=== PATIENT | female | born 1965 | race Caucasian/White ===

== ENCOUNTER 2019-07-12 07:30 | Inpatient (IN) | payer MEDICARE ==
[2019-07-30] MEDS ORDERED: Buffered Lidocaine 1% SYRIN* 1 ML/SYRINGE INTRADERM ONE (11:58)
[2019-07-31] MEDS ORDERED: Lactated Ringers 1000 ML Bag* 1,000 ML IV SCH ×2 (06:00→23:00)
[2019-07-31] MEDS ORDERED: ceFAZolin 2 GM in NS PREMIX(*) 2 GM/100 ML BAG IVPB ONE (06:53)
[2019-07-31] MEDS ORDERED: Bupivacaine 0.25% W/EPI* 10 ML SDV ONE ×2 (06:58→12:48)
[2019-07-31] MEDS ORDERED: Thrombin 5,000 UNITS* 1 APPLIC KIT - topical use - TOPICAL ONE (06:59)
[2019-07-31] MEDS ORDERED: Bacitracin INJECTION* 50,000 UNITS ONE ×6 (06:59→21:46)
[2019-07-31] MEDS ORDERED: Propofol* 500 MG/50 ML BTL ONE ×2 (07:21→12:20)
[2019-07-31] MEDS ORDERED: Remifentanil* 2 MG VIAL ONE ×5 (07:21→19:16)
[2019-07-31] MEDS ORDERED: Phenylephrine 40 MCG/ML SYRINGE ONE (07:21)
[2019-07-31] MEDS ORDERED: KETAMINE HCL* 50 MG/ML 10 ML VIAL ONE (07:22)
[2019-07-31] MEDS ORDERED: Midazolam* 1 MG/ML 2 ML VIAL (2 MG) ONE (07:23)
[2019-07-31] MEDS ORDERED: fentaNYL* 50 MCG/ML 2 ML VIAL (100 MCG VIAL) ONE ×2 (07:23→22:20)
[2019-07-31] MEDS ORDERED: Phenylephrine 10 MG/ML VIAL* 1 ML VIAL ONE ×2 (07:29→15:16)
[2019-07-31 11:07] LABS: Follicle Stimulating Hormone 57.1 mIU/mL; Luteinizing Hormone 48.9 mIU/mL
[2019-07-31] MEDS ORDERED: Rocuronium* 10 MG/ML VIAL ONE ×2 (11:16→13:43)
[2019-07-31] MEDS ORDERED: Propofol* 10 MG/ML 20 ML BTL ONE ×2 (11:16→20:46)
[2019-07-31] MEDS ORDERED: Dexamethasone IV* 4 MG/ML 1 ML (4 MG) ONE (12:31)
[2019-07-31] MEDS ORDERED: Propofol* 300 ML ONE (12:48)
[2019-07-31] MEDS ORDERED: DiMENhydriNATE IV* 50 MG/ML VIAL IV PUSH PRN (13:06)
[2019-07-31] MEDS ORDERED: oxyCODONE TAB* 5 MG TAB PO PRN (13:06)
[2019-07-31] MEDS ORDERED: Naloxone* 0.4 MG/ML 1 ML VIAL IV PRN (13:06)
--- NOTE | 2019-07-31 13:22 | CONSULT ---
Consult Consult: This is a 54 yo pt prestening for a multi-level transforaminal back surgery. She had an elevated blood beta HCG (9.33) on 07/25/19. It is noted by the lab that an elevated HCG that is still < 20 is normal for perimenopausal women. We spoke with Ob-Vessel Crew Member Aidan Aguilar over the phone who suggested that we repeat the HCG, and take an LH and FSH. Her repeat HCG was 10.12, and her LH and FSH levels were all suggestive that she was not and that the elevated HCG was 2/[address] Aguilar and pathologist Dr. Moreland agreed. The patient understood and agreed to proceed with surgery.
[2019-07-31] MEDS ORDERED: Propofol* 2,000 MG/200 ML BTL ONE (17:30)
[2019-07-31] MEDS ORDERED: ceFAZolin VIAL(*) VIAL ONE (18:07)
[2019-07-31] MEDS ORDERED: ceFAZolin 2 GM PREMIX in ORs 2 GM/50 ML BAG ONE (18:18)
[2019-07-31 22:02] LABS: Hematocrit 38 % (35-47); Hemoglobin 12.8 g/dL (12.0-16.0)
[2019-07-31] MEDS ORDERED: Vancomycin(*) 1,000 MG VIAL ONE (22:04)
[2019-07-31] MEDS ORDERED: Morphine INJ* 2 MG/ML 1 ML SYRINGE (TWO MG - NEW SYRINGE VERSION) IV PRN (23:28)
[2019-07-31] MEDS ORDERED: HYDROmorphone INJ1* 1 MG/ML SYRINGE ONE (23:38)
[2019-08-01] MEDS: HYDROmorphone INJ1* 1 MG/ML SYRINGE IV PRN ×3 (00:05→00:30)
[2019-08-01] MEDS ORDERED: Vancomycin(*) 1,000 MG VIAL ONE (00:47)
--- NOTE | 2019-08-01 00:58 | CONSULT ---
Consult Consult: HOSPITALIST CONSULTATION DATE OF CONSULTATION: 08/01/19 REQUESTING PROVIDER: Dr. Mai REASON FOR CONSULTATION: Medical co-management HPI: Ms Alonzo is a 54 yo F who has a h/o chronic back pain who underwent an extensive operation with Dr. Pompa on 07/31/19. The hospitalist service was asked for medical co-management. Paula is seen immediately post-operatively and she is not awake enough to speak. She does open her eyes. She is able to nod "yes" to having pain. No further history was obtained from the patient. PMHx: as per pt's , HTN, asthma, GERD PSHx: as per pt's , laminectomy, surgery for tubal , tubal ligation All: NKDA Meds: Current and home medications reviewed. FamHx: not obtainable from patient. SocHx: as per pt's , she quit smoking about 3 weeks ago. She is not able to work secondary to her back pain. ROS: unobtainable from the patient PE: BP 114/84 HR 98 RR 14 T 97.5 O2 sat 99% on 6L gen: middle aged female lying in the stretcher, occasionally opens her eyes, NAD HEENT: eyelids/lips are puffy Card: nl S1S2 RRR, no LE edema Lungs: CTA anteriorly Abd: BS + soft, ND. Musculo: pt able to wiggle toes B/L Skin: welt like skin lesions on abdomen, mild skin breakdown/possible nicole intertrigo L abdominal skin fold Neuro: wiggles toes, otherwise not tested Psych: lethargic A/P: Ms Alonzo is a 54yo F who has a h/o HTN and asthma who underwent extensive (10hr) lumbosacral surgery with Dr. Pompa on 07/31 in a prone position who is seen for medical consultation. 1. Lumbosacral fusion: management per Dr. Pompa. Will likely need STR prior to returning home. Continue pain control. 2. HTN: BPs have been adequate. Pressures should remain systolically 100-140's [address] Dr[address] Pompa. Will hold lisinopril for now and monitor pressures. Likely resume in next 24-48hr. 3. Asthma: pt is to continue on anoro ellipta and prn albuterol. 4. GERD: continue omeprazole. 5. DVT-P: SCDs until chemical prophylaxis ok'ed by neurosurgery 6. Full code
[2019-08-01] MEDS ORDERED: Albuterol HFA INHALER* 8 gm MDI INH PRN (02:12)
[2019-08-01] MEDS ORDERED: Ondansetron INJ* 2 MG/ML VIAL ONE (02:53)
[2019-08-01] MEDS ORDERED: Ondansetron INJ* 2 MG/ML VIAL IV SCH (03:00)
[2019-08-01] MEDS: HYDROmorphone INJ* 0.5 MG/0.5 ML SYRINGE IV SLOW PU PRN ×7 (03:03→23:29)
[2019-08-01] MEDS: Lactated Ringers 1000 ML Bag* 1,000 ML IVPB SCH ×2 (03:11→12:35)
[2019-08-01] MEDS: oxyCODONE TAB* 5 MG TAB PO PRN ×4 (04:18→23:30)
[2019-08-01] MEDS ORDERED: Ondansetron INJ* 2 MG/ML VIAL IV PRN (05:00)
--- NOTE | 2019-08-01 07:38 | OP ---
DATE OF OPERATION: 07/31/19 - ROOM #ICU-09 DATE OF : 69 SURGEON: Miladis Pompa MD BUDGET ACCOUNTANT: David Carpenter, Surgical PA. The case was done with the assistance of surgical PA because of the complexity of the case. ANESTHESIA: General. PRE-OP DIAGNOSES: 1. Degenerative disk disease. 2. Adult deformity. 3. Scoliosis. POST-OP DIAGNOSES: 1. Degenerative disk disease. 2. Adult deformity. 3. Scoliosis. OPERATIVE PROCEDURE: The patient underwent T10 to S1 and pelvis posterolateral fusion with bilateral instrumentation with pedicle screws T10, T11, T12, L1, L2 , L3, L4, L5, and S1, and bilateral S2AI screws with left L3-L4, L4-L5, and L5- S1 TLIF with bilateral facetectomies. ESTIMATED BLOOD LOSS: 250 cc. COMPLICATIONS: None. SUMMARY: The patient is a very pleasant 54-year-old female with complaints of severe back pain radiating to most of the left lower extremity and a lesser degree to the right lower extremity. The patient had previous laminectomies by Dr. Maki and diskectomies without significant relief of her symptoms. Imaging revealed findings consistent with extensive degenerative disk disease, scoliosis, and adult deformity with positive sagittal balance. After failing conservative treatment modalities, the patient opted the option of surgical intervention and after explaining the expectation, limitations, and possible complications of the procedure to the patient and her family including her with complications including but not limited to bleeding, infection, risk of injury to adjacent structures, paralysis, , need for additional procedure, anesthesia risk, stroke, blindness, cancer, instability, hardware failure, adjacent level disease, pseudoarthrosis, proximal junctional kyphosis, distal junctional kyphosis, loss of bladder or bowel control, spinal fluid leak , instability, deformity of the posture, prolonged ICU stay, prolonged rehabilitation, prolonged hospitalization, need for tracheostomy or gastrostomy , injury to intraabdominal or intrathoracic organs, risk of transmission of diseases from use of bone bank graft, anesthesia risks. The patient was agreeable to proceed with surgery and informed consent was obtained. The patient understood that if her condition may not improve and in fact may get worse after surgery and thus may need to have additional procedures. She also understood that the operative plan may be modified according to intraoperative findings and conditions and that the case may be abandoned or done in more than 1 stages. She understood the she may require prolonged ICU stay, prolonged rehabilitation, need for tracheostomy or gastrostomy, prolonged dependence on the ventilator, scar formation. DESCRIPTION OF PROCEDURE: The patient was brought to the operating room, was placed under general anesthesia by the anesthesia team. She was carefully positioned supine on the Yoel table and all bony prominences were meticulously padded. Her skin was prepped and draped in the standard fashion and after appropriate surgical pause and patient identification, a long midline incision over the approximate level of T10 and S2 was marked on the skin and incorporating the previous incision. The skin was infiltrated with local anesthetic and after incising the skin with a #10 surgical blade the incision was carried down the subcutaneous tissue with Bovie cautery. Self-retaining retractors were positioned into the field. The dorsal fascia was divided on both sides of midline with use of Bovie cautery and the paraspinal musculature was elevated in a subperiosteal fashion with periosteal elevators and Bovie cautery. Further exposure of the lateral facets as well as the transverse processes of all involved levels as well as the sacra ala and the S2 lamina was meticulously performed and self-retaining retractors were introduced into the field. Then, the navigation star was secured in the S1 spinous process and intraoperative OR imaging was obtained. The patient's data was transferred to the navigation platform and under stereotactic navigation the pedicles of T10 through S1 were cannulated and Medtronic Voyager ATS screws were placed in all levels. Then attention was brought to perform a TLIF at the left L3-4 space. Previous scar was encountered from the previous surgical intervention. High- speed drill was used to perform a partial hemilaminectomy and complete facetectomy. Approach through Kambin's triangle was used and a significant amount of scar tissue was encountered. After meticulous lysis of adhesions the diskectomy was performed. After incising the annulus fibrosis with a #10 surgical blade, a series of dilators were used and the disk space was prepared by gently scraping the endplates. An 7 mm Elevate expandable cage was introduced after being filled with locally harvested bone graft during the exposure part of the procedure and DBX and after filling prior the disk space with similar graft material. The procedure was then repeated for the L4-L5 level which had also previously been operated on and a significant amount of scar tissue was encountered. The procedure was then performed at left L5-S1 level. After the insertion of all cages, the thecal sac and the nerves were found to be free of any pressure phenomenon and the foramina were found to be patent. After confirmation of meticulous hemostasis, copious irrigation, and meticulous inspection, a second spin of the O-arm was performed in order to confirm the appropriate placement of hardware. The second spin revealed excellent placement of all hardware and then the navigation star was was repositioned over the L3 spinous process and under stereotactic navigation S2AI screws were placed bilaterally. Additional O-arm imaging was obtained which confirmed excellent placement of the pelvic screws and then attention was brought to perform bilateral medial facetectomies in the rest of the operative levels. The bony surfaces were then gently decorticated as well as the transverse processes and the sacra ala and bone graft material was inserted to perform a posterolateral arthrodesis. Also, extended decortication of the remaining facets and partial facetectomies were performed in all remaining levels. Two titanium rods were cut in size as well as shaved in order to connect the screw heads. The rods were secured in place with screw head caps. The reduction extensions were then gently removed and after copious irrigation and confirmation of meticulous hemostasis and meticulous inspection, the wound was closed by layers over to MAU drains, which were done through separate stab wound incisions. Prior to closure, 1 gram of vancomycin powder was used after performing copious irrigation.The dorsal fascia was approximated with 0- interrupted Vicryl sutures. The subcutaneous tissue was approximated with 0 inverted interrupted Vicryl sutures and 2-0 inverted interrupted Vicryl sutures. The skin was then approximated with #1 Prolene interrupted running sutures and covered with sterile sponges. At the end of the procedure, all counts were reported to be correct. The patient remained hemodynamically stable throughout the case and intraoperative electrophysiological monitoring was stable throughout the case. The patient was then turned supine, was extubated, and was transferred to the Recovery in excellent condition. The case was done with the assistance of a surgical PA because of the complexity of the case. [id number]/CPS #: [id number] RANULFO
[2019-08-01 08:31] LABS: Hematocrit 36 % (35-47); Hemoglobin 11.8 g/dL (12.0-16.0); Mean Corpuscular HGB Conc 33 g/dL (31-36); Mean Corpuscular Hemoglobin 30 pg (27-31); Mean Corpuscular Volume 90 fL (80-97); Mean Platelet Volume 7.2 fL (7.4-10.4); Platelet Count 281 10^3/uL (150-450); Red Blood Count 3.95 10^6 /uL (3.70-4.87); Red Cell Distribution Width 14 % (10-15); White Blood Count 15.2 10^3/uL (3.5-10.8)
[2019-08-01 08:47] LABS: Calcium 8.4 mg/dL (8.6-10.3); EGFR African American 89.8 (>60); EGFR Non-African American 74.3 (>60); Potassium 4.7 mmol/L (3.5-5.0)
[2019-08-01] MEDS ORDERED: Influenza VAC *QUAD* 2019-20* 0.5 ML SYRINGE IM ONE (09:00)
[2019-08-01] MEDS: Tiotropium Brom/Olodaterol MDI INH SCH (09:34)
[2019-08-01] MEDS: BuPROPion XL* 300 MG TAB.XL PO SCH (09:48)
[2019-08-01] MEDS: Pantoprazole TAB * 40 MG TAB PO SCH (09:48)
[2019-08-01] MEDS: Gabapentin CAP(*) 300 MG PO SCH ×2 (09:49→15:47)
[2019-08-01] MEDS: Cyclobenzaprine TAB* 10 MG PO PRN ×3 (11:33→23:41)
[2019-08-01] MEDS ORDERED: Polyethylene Glycol 3350* 17 GM PACKET PO PRN (13:51)
--- NOTE | 2019-08-01 13:54 | PN ---
Hospitalist Progress Note Date of Service: 08/01/19 I saw and examined Paula this morning. She has some "soreness" but the dilaudid and oxycodone is controlling the pain without sedation. PT has not worked with her yet. Vitals are significant for HR in the 100s-110, BP 104/76, RR 16, 91% RA Resting comfortably with at the bedside, alert, well appearing Moist mucosa mildly tachycardic miles in place distal sensation in tact except right lateral thigh, DP/PTpulses 2+ A/P: 1. POD #1 T10-S1 fusion with pedicle screws T10, T11, T12, L1-5, S1. Pain is controlled. Add bowel regimen to narcotic regimen. PT today. DC miles today after PT (not able to roll at this time) DC IVF this afternoon, eating/drinking well 2. HTN normotensive off home dose lisinopril 3. dvt ppx on hold post neurosurg; will discuss with them
--- NOTE | 2019-08-01 17:29 | PN ---
Progress Note - Progress Note Date of Service: 08/01/19 SOAP: Subjective: []54 y/o female s/p T10 - S1 TLIF POD #1 patient was sent to ICU after surgery, she had some pain and nausea after surgery, but did have some relief this morning. She complains of back muscle spasms, and some subjective numbness of the left thigh, otherwise has been stable overnight. The MAU drains have been active draining from midnight to 6 am the MAU #1 put out 70 ml and MAU #2 put out 50 ml. Her vital have been stable overnight, and she had no acute issues overnight. She still has her miles in. Objective: [] General: patient sitting up in bed appears to be comfortable, NAD, mood is pleasant. Neuro: A&O x 3 CN II - XII grossly intact. EOM intact. pupils equal in size, Upper extremity motor strength 5/5 throughout, lower motor strength intact 5/5 through out, sensation intact to dull touch. Derm. Dressing has small amount of drainage seen, drains intact actively draining. Assessment: [] 54 y/o female post T10 - S1 POD #1 patient has significant post op pain, which was expected, but is doing well, her vitals have been stable overnight and pain been well managed with current pain medication regimen, but still has some muscle spasms. Plan: [] 1) Transfer patient to [facility] if cleared by medicine 2) pain control as needed 3) Will Flexeril for muscle spams 4) Out of bed to chair 5) PT/OT evaluation 6)PMRU evaluation 7)Follow medicine recommendations 8) Encourage use incentive spirometer
[2019-08-02] MEDS: HYDROmorphone INJ* 0.5 MG/0.5 ML SYRINGE IV SLOW PU PRN (03:10)
[2019-08-02] MEDS: Lactated Ringers 1000 ML Bag* 1,000 ML IVPB SCH (03:29)
[2019-08-02] MEDS: Acetaminophen TAB* 325 MG PO PRN (05:12)
[2019-08-02 05:28] LABS: Urine Appearance Clear; Urine Bacteria Absent (Absent); Urine Bilirubin Negative (Negative); Urine Blood 1+ (Negative); Urine Color Amber; Urine Glucose Negative (Negative); Urine Ketones Negative (Negative); Urine Nitrite Negative (Negative); Urine Protein 1+(30 mg/dL) (Negative); Urine Red Blood Cell 3+(>10/hpf) (Absent); Urine Specific Gravity 1.026 (1.010-1.030); Urine Squamous Epithelial Cell Present (Absent); Urine Urobilinogen Negative (Negative); Urine White Blood Cell 2+(11-20/hpf) (Absent)
[2019-08-02] MEDS: Gabapentin CAP(*) 300 MG PO SCH ×4 (05:49→21:30)
[2019-08-02] MEDS: oxyCODONE TAB* 5 MG TAB PO PRN ×4 (06:16→21:30)
[2019-08-02 07:15] LABS: ABS Basophils 0.1 10^3/ul (0-0.2); ABS Lymphocytes 1.9 10^3/ul (1.0-4.8); ABS Monocytes 0.8 10^3/ul (0-0.8); ABS Neutrophils 9.6 10^3/ul (1.5-7.7); Eosinophil % 0.2 %; Hematocrit 30 % (35-47); Hemoglobin 9.9 g/dL (12.0-16.0); Lymphocyte % 15.2 %; Mean Corpuscular HGB Conc 33 g/dL (31-36); Mean Corpuscular Hemoglobin 30 pg (27-31); Mean Corpuscular Volume 90 fL (80-97); Mean Platelet Volume 7.3 fL (7.4-10.4); Platelet Count 235 10^3/uL (150-450); Red Blood Count 3.31 10^6 /uL (3.70-4.87); Red Cell Distribution Width 13 % (10-15); White Blood Count 12.3 10^3/uL (3.5-10.8)
[2019-08-02 07:29] LABS: BUN/Creatinine Ratio 32.8 (8-20); Calcium 8.2 mg/dL (8.6-10.3); EGFR African American 124.6 (>60); Potassium 3.9 mmol/L (3.5-5.0)
--- NOTE | 2019-08-02 07:52 | PN ---
Subjective Date of Service: 08/02/19 Interval History: Febrile to 100.6 this am at 4am. Miles MO'ed this am. Has not yet voided. Having pain this morning even after oxycodone. Feels overwhelmed at the thought of walking today. Good appetite, drinking lots of fluids. No bowel movement since surgery. got to the chair with PT yesterday. Objective Active Medications: Acetaminophen (Tylenol Tab*) 650 mg PO Q4H PRN PRN Reason: PAIN - MILD OR FEVER Last Admin: 08/02/19 05:12 Dose: 650 mg Albuterol (Ventolin Hfa Inhaler*) 2 puff INH Q6H PRN PRN Reason: SHORTNESS OF BREATH Bupropion HCl (Bupropion Xl*) 300 mg PO QAM [facility] Last Admin: 08/01/19 09:48 Dose: 300 mg Cyclobenzaprine HCl (Flexeril Tab*) 10 mg PO TID PRN PRN Reason: SPASMS - BACK Last Admin: 08/01/19 23:41 Dose: 10 mg Gabapentin (Neurontin Cap(*)) 300 mg PO TID [facility] Last Admin: 08/02/19 05:49 Dose: Not Given Hydromorphone HCl (Dilaudid Inj*) 0.5 mg IV SLOW PU Q2H PRN PRN Reason: PAIN - SEVERE Last Admin: 08/02/19 03:10 Dose: 0.5 mg Lactated Ringer's (Lactated Ringers 1000 Ml Bag*) 1,000 mls @ 75 mls/hr IVPB .per rate [facility] Last Admin: 08/02/19 03:29 Dose: 75 mls/hr Influenza Virus Vaccine (Fluarix Quad [id number] Syr) 0.5 ml IM .ONCE ONE Stop: 08/03/19 09:01 Ondansetron HCl (Zofran Inj*) 4 mg IV Q6H PRN PRN Reason: NAUSEA Last Admin: 08/01/19 09:50 Dose: 4 mg Oxycodone HCl (Roxycodone Tab*) 10 mg PO Q4H PRN PRN Reason: PAIN - MODERATE Last Admin: 08/02/19 06:16 Dose: 10 mg Pantoprazole Sodium (Protonix Tab*) 40 mg PO [facility] Last Admin: 08/01/19 09:48 Dose: 40 mg Polyethylene Glycol/Electrolytes (Miralax*) 17 gm PO DAILY PRN PRN Reason: CONSTIPATION Tiotropium [place]/Olodaterol (Stiolto Respimat Inh [place] (60 Puff)) 2 puff INH QAM [facility] Last Admin: 08/01/19 09:34 Dose: 2 puff Vital Signs - 8 hr 08/02/19 08/02/19 08/02/19 00:16 03:10 03:59 Temperature 99.9 F 100.6 F Pulse Rate 121 125 Respiratory 17 20 17 Rate Blood Pressure 103/54 115/63 (mmHg) O2 Sat by Pulse 96 100 Oximetry 08/02/19 08/02/19 05:49 06:16 Temperature Pulse Rate Respiratory 16 16 Rate Blood Pressure (mmHg) O2 Sat by Pulse Oximetry Oxygen Devices in Use Now: None Appearance: alert, well appearing, tired Eyes: No Scleral Icterus Ears/Nose/Mouth/Throat: NL Teeth, Lips, Gums Neck: NL Appearance and Movements; NL JVP Respiratory: Symmetrical Chest Expansion and Respiratory Effort Cardiovascular: NL Sounds; No Murmurs; No JVD, RRR Abdominal: NL Sounds; No Tenderness; No Distention Lymphatic: No Cervical Adenopathy Extremities: No Edema, No Clubbing, Cyanosis Skin: - - 2 drains both with serosanguinous fluid Neurological: NL Muscle Strength and Tone Result Diagrams: 08/02/19 06:55 08/02/19 06:55 Microbiology and Other Data: Microbiology 08/01/19 02:15 Nasal Screen MRSA (PCR) - Final Nasal Mrsa Not Detected Assess/Plan/Problems-Billing Assessment: 54 year old woman with lumbar osteoarthritis failing conservative therapy s/p arthrodesis on 07/[address] Pompa - Patient Problems (1) Status post arthrodesis Current Visit: Yes Status: Acute Code(s): Z98.1 - ARTHRODESIS STATUS SNOMED Code(s): 206562938 Comment: POD #2 pain controlled with dilaudid and oxycodone increase bowel regimen today miles DC'ed this am DC IVF today PT again today (2) Postoperative fever Current Visit: Yes Status: Acute Code(s): R50.82 - POSTPROCEDURAL FEVER SNOMED Code(s): 120527774 Comment: leukocytosis improving will follow closely (3) Anemia Current Visit: Yes Status: Acute Code(s): D64.9 - ANEMIA, UNSPECIFIED SNOMED Code(s): 463947498 Comment: likely post-op no indication for transfusion will follow (4) HTN (hypertension) Current Visit: Yes Status: Acute Code(s): I10 - ESSENTIAL (PRIMARY) HYPERTENSION SNOMED Code(s): 58171352 Comment: normotensive off lisinopril
[2019-08-02] MEDS: Cyclobenzaprine TAB* 10 MG PO PRN (08:21)
[2019-08-02] MEDS: BuPROPion XL* 300 MG TAB.XL PO SCH (08:21)
[2019-08-02] MEDS: Pantoprazole TAB * 40 MG TAB PO SCH (08:22)
[2019-08-02] MEDS: Ketorolac INJ* 30 MG/ML 1 ML VIAL IV PUSH PRN ×2 (08:23→14:22)
[2019-08-02] MEDS: Tiotropium Brom/Olodaterol MDI INH SCH (11:45)
--- NOTE | 2019-08-02 14:12 | PN ---
Progress Note - Progress Note Date of Service: 08/02/19 SOAP: Subjective: []%4 y/o female post Fusion T10 - S2 POD#2 patient transferred out of ICU yesterday to short stay. She continues to have significant post op pain and was not able to completed x rays yesterday. She retained her Toro catheter overnight, and was only able to sit in chair, but did not attempt to walk. Patient was a little more comfortable over night, she still has drains in place over the last 24 hours her drains have put out: MAU#1, 197 ml MAU#2 118 ml. She has been tachycardiac, but her her other vitals has remained stable. Patient indicates that has diffculty with breathing when she attempts to move because of pain. Today she has been accepted in PMRU rehab did complete X rays this morning. Today she did well with transferring from bed to chair. Objective: [] Initial Vitals Temp Pulse Resp BP Pulse Ox 98.8 F 80 16 116/70 98 07/25/19 14:07/25/19 14:07/25/19 14:09 07/25/19 14:07/25/19 14:09 General: Patient sitting up chair has some mild discomfort. Neuro: A&O x 3 CN II - XII grossly intact. EOM intact. pupils equal in size, Upper extremity motor strength 5/5 throughout, lower motor strength intact 5/5 through out, sensation intact to dull touch. Derm: Wound C/D/I no active drainage from wound, retention sutures intact. Drains intact small amount serosanguinous fluid seen in bulbs. Assessment: []44 y/o female post TLIF of T10 - S2, she more active today, has been able to transfer from bed to chair with assistance, and completed standing X rays this morning. Patient has been accepted into rehab. Plan: [] 1) Pain control as needed 2) Follow medicine recommendations 3) Encourage ambulation 4) Continue to use IS 5) change dressings 6) continue to monitor drain output 7) Prepare to discharge to rehab.
[2019-08-03] MEDS: oxyCODONE TAB* 5 MG TAB PO PRN ×5 (01:17→21:44)
[2019-08-03] MEDS: Ketorolac INJ* 30 MG/ML 1 ML VIAL IV PUSH PRN ×4 (01:18→22:00)
[2019-08-03] MEDS ORDERED: Senna TAB 8.6 mg* TAB PO PRN (07:41)
[2019-08-03] MEDS ORDERED: Magnesium Hydroxide LIQ* 30 ML UDC PO PRN (07:45)
--- NOTE | 2019-08-03 07:46 | PN ---
Subjective Date of Service: 08/03/19 Interval History: Febrile Tm to 100.8 early this am. She is sitting in the chair this morning. She feels "sore". Does have a cough. Has not had a bowel movement. Objective Active Medications: Acetaminophen (Tylenol Tab*) 650 mg PO Q4H PRN PRN Reason: PAIN - MILD OR FEVER Last Admin: 08/02/19 05:12 Dose: 650 mg Albuterol (Ventolin Hfa Inhaler*) 2 puff INH Q6H PRN PRN Reason: SHORTNESS OF BREATH Bupropion HCl (Bupropion Xl*) [facility] Last Admin: 08/02/19 08:21 Dose: 300 mg Cyclobenzaprine HCl (Flexeril Tab*) 10 mg PO TID PRN PRN Reason: SPASMS - BACK Last Admin: 08/02/19 08:21 Dose: 10 mg Gabapentin (Neurontin Cap(*)) 300 mg PO TID [facility] Last Admin: 08/02/19 21:30 Dose: 300 mg Hydromorphone HCl (Dilaudid Inj*) 0.5 mg IV SLOW PU Q2H PRN PRN Reason: PAIN - SEVERE Last Admin: 08/02/19 03:10 Dose: 0.5 mg Influenza Virus Vaccine (Fluarix Quad [id number] Syr) 0.5 ml IM .ONCE ONE Stop: 08/03/19 09:01 Ketorolac Tromethamine (Toradol Inj*) 30 mg IV PUSH Q6H PRN PRN Reason: PAIN - MODERATE Last Admin: 08/03/19 01:18 Dose: 30 mg Ondansetron HCl (Zofran Inj*) 4 mg IV Q6H PRN PRN Reason: NAUSEA Last Admin: 08/01/19 09:50 Dose: 4 mg Oxycodone HCl (Roxycodone Tab*) 10 mg PO Q4H PRN PRN Reason: PAIN - MODERATE Last Admin: 08/03/19 07:14 Dose: 10 mg Pantoprazole Sodium (Protonix Tab*) 40 mg PO [facility] Last Admin: 08/02/19 08:22 Dose: 40 mg Polyethylene Glycol/Electrolytes (Miralax*) 17 gm PO DAILY PRN PRN Reason: CONSTIPATION Last Admin: 08/02/19 08:23 Dose: 17 gm Tiotropium [place]/Olodaterol (Stiolto Respimat Inh [place] (60 Puff)) 2 puff INH QAM [facility] Last Admin: 08/02/19 11:45 Dose: 2 puff Vital Signs - 8 hr 08/03/19 08/03/19 08/03/19 00:57 01:17 02:30 Temperature 100.8 F Pulse Rate 129 Respiratory 16 16 16 Rate Blood Pressure 120/75 (mmHg) O2 Sat by Pulse 95 Oximetry 08/03/19 08/03/19 04:41 07:14 Temperature 98.4 F Pulse Rate 108 Respiratory 16 18 Rate Blood Pressure 93/54 (mmHg) O2 Sat by Pulse 96 Oximetry Oxygen Devices in Use Now: Nasal Cannula Appearance: alert, tired, nontoxic appearing, breathing comortably, coughs occasionally Eyes: No Scleral Icterus Ears/Nose/Mouth/Throat: NL Teeth, Lips, Gums Neck: NL Appearance and Movements; NL JVP Respiratory: Symmetrical Chest Expansion and Respiratory Effort, Clear to Auscultation Cardiovascular: NL Sounds; No Murmurs; No JVD, RRR Abdominal: NL Sounds; No Tenderness; No Distention Lymphatic: No Cervical Adenopathy Extremities: No Edema Skin: - - 2 drains with serosanguinous fluid Result Diagrams: 08/02/19 06:55 08/02/19 06:55 Microbiology and Other Data: Microbiology 08/01/19 02:15 Nasal Screen MRSA (PCR) - Final Nasal Mrsa Not Detected Assess/Plan/Problems-Billing Assessment: 54 year old woman with lumbar osteoarthritis failing conservative therapy s/p arthrodesis on 07/[address] Pompa - Patient Problems (1) Status post arthrodesis Current Visit: Yes Status: Acute Code(s): Z98.1 - ARTHRODESIS STATUS SNOMED Code(s): 437174219 Comment: POD #3 pain controlled with dilaudid and oxycodone increase bowel regimen again today miles DC'ed yesterday IVF off, tolerating PO PT again today (2) Postoperative fever Current Visit: Yes Status: Acute Code(s): R50.82 - POSTPROCEDURAL FEVER SNOMED Code(s): 271734293 Comment: no localizing signs of infection except cough; will get cxr this morning repeat cbc and bmp this am (3) Anemia Current Visit: Yes Status: Acute Code(s): D64.9 - ANEMIA, UNSPECIFIED SNOMED Code(s): 150495595 Comment: likely post-op no indication for transfusion will recheck this am (4) HTN (hypertension) Current Visit: Yes Status: Acute Code(s): I10 - ESSENTIAL (PRIMARY) HYPERTENSION SNOMED Code(s): 96904435 Comment: normotensive off lisinopril
[2019-08-03] MEDS: Tiotropium Brom/Olodaterol MDI INH SCH (07:54)
[2019-08-03 08:13] LABS: ABS Basophils 0.1 10^3/ul (0-0.2); ABS Eosinophils 0.1 10^3/ul (0-0.6); ABS Lymphocytes 1.5 10^3/ul (1.0-4.8); ABS Monocytes 0.4 10^3/ul (0-0.8); ABS Neutrophils 5.2 10^3/ul (1.5-7.7); Eosinophil % 1.4 %; Hematocrit 29 % (35-47); Hemoglobin 9.7 g/dL (12.0-16.0); Lymphocyte % 20.3 %; Mean Corpuscular HGB Conc 34 g/dL (31-36); Mean Corpuscular Hemoglobin 30 pg (27-31); Mean Corpuscular Volume 90 fL (80-97); Mean Platelet Volume 6.8 fL (7.4-10.4); Platelet Count 227 10^3/uL (150-450); Red Blood Count 3.19 10^6 /uL (3.70-4.87); Red Cell Distribution Width 13 % (10-15); White Blood Count 7.3 10^3/uL (3.5-10.8)
[2019-08-03 08:25] LABS: BUN/Creatinine Ratio 26.6 (8-20); Calcium 8.4 mg/dL (8.6-10.3); EGFR African American 117.9 (>60); EGFR Non-African American 97.4 (>60); Potassium 4.1 mmol/L (3.5-5.0)
[2019-08-03] MEDS: Gabapentin CAP(*) 300 MG PO SCH ×3 (08:45→21:44)
[2019-08-03] MEDS: Polyethylene Glycol 3350* 17 GM PACKET PO SCH ×2 (08:45→21:44)
[2019-08-03] MEDS: Pantoprazole TAB * 40 MG TAB PO SCH (08:47)
[2019-08-03] MEDS ORDERED: Influenza VAC *QUAD* 2019-20* 0.5 ML SYRINGE IM ONE (09:00)
[2019-08-03] MEDS: BuPROPion XL* 300 MG TAB.XL PO SCH (10:05)
[2019-08-03] MEDS: Cyclobenzaprine TAB* 10 MG PO PRN (10:08)
[2019-08-03] MEDS ORDERED: Iohexol 350* (CONTRAST) 500 ML MDV IV ONE (11:22)
[2019-08-03] MEDS ORDERED: Azithromycin 500 mg/250 ml NS 500 MG/250 ML BAG IVPB ONE (14:58)
--- NOTE | 2019-08-03 15:01 | PN ---
Hospitalist Progress Note Date of Service: 08/03/19 Paula was noted to be febrile, tachycardic, short of breath, and feeling "lousy" this morning. A CXR was negative, so I obtained a CTA which showed a R subsegmental PE and a costophrenic infiltrate on the left. I informed her and her of these findings. I discussed this with Dr. Pompa and he would like to avoid anticoagulation if possible given her recent neurosurgical procedure 3 days ago. Per CHEST guidelines, will get dopplers of her lower extremities to further delineate her risk to decide on anticoagulation. Will start IVF, ceftriazone, zithromax for pneumonia; unable to give sputum culture.
[2019-08-03] MEDS: NS 0.9% 1000 ML** 1,000 ML IV SCH (15:28)
--- NOTE | 2019-08-03 16:29 | PN ---
Progress Note - Progress Note Date of Service: 08/03/19 SOAP: Subjective: []Patient seen this morning, she POD #3, she continues to have pain and muscle spasms, but has been able to transfer from bed to chair with assistance. She continues to have numbness in the left thigh. Patient libby reports walking to the bathroom, but has not attempted to walk with PT. She was suppose to be discharged to [facility] yesterday for rehab, but was denied. Despite having some pain she has been stable overnight her MAU# 1 drain put out 80 ml, MAU #2 put out 12 ml. Today she is pending admittance to rehab. Objective: [] General : Patient sitting up in chair, NAD. Neuro: A&O x 3 CN II - XII grossly intact. EOM intact. pupils equal in size, Upper extremity motor strength 5/5 throughout, lower motor strength intact 5/5 through out, sensation intact to dull touch. Derm: small amount of drainage on the dressing, drains intact Assessment: [] 54 y/o female post T10 -S1 fusion POD #3 patient has been making gradual improvement, still has not been ambulating as recommended. He admission to [facility] was delayed yesterday. She is doing better but continues to have significant pain, possible will improve with more activity. Plan: []1) Discontinue drains 2) Follow medicine recommendations 3) Use IS 4) Continue to encourage ambulation 5) Prepare for discharge to [facility]
[2019-08-03 18:01] LABS: ABS Eosinophils 0.1 10^3/ul (0-0.6); ABS Monocytes 0.3 10^3/ul (0-0.8); ABS Neutrophils 4.7 10^3/ul (1.5-7.7); Eosinophil % 1.2 %; Hematocrit 26 % (35-47); Hemoglobin 9.1 g/dL (12.0-16.0); Lymphocyte % 16.5 %; Mean Corpuscular HGB Conc 34 g/dL (31-36); Mean Corpuscular Hemoglobin 31 pg (27-31); Mean Corpuscular Volume 89 fL (80-97); Mean Platelet Volume 6.9 fL (7.4-10.4); Nucleated Red Blood Cells % 0.1; Platelet Count 204 10^3/uL (150-450); Red Blood Count 2.96 10^6 /uL (3.70-4.87); Red Cell Distribution Width 13 % (10-15); White Blood Count 6.1 10^3/uL (3.5-10.8)
[2019-08-03 18:19] LABS: EGFR African American 109.9 (>60); EGFR Non-African American 90.9 (>60)
[2019-08-03] MEDS: cefTRIAXone(*) 1 GM in NS 0.9% 50 ML* 50 ML IVPB SCH (18:32)
[2019-08-03] MEDS: Heparin DRIP 25,000 UNITS(*) 25,000 UNITS/500 ML BAG IV SCH (19:44)
[2019-08-03] MEDS: Docusate CAP* 100 MG PO PRN (21:45)
[2019-08-04] MEDS: NS 0.9% 1000 ML** 1,000 ML IV SCH (01:38)
[2019-08-04] MEDS: oxyCODONE TAB* 5 MG TAB PO PRN ×5 (01:54→22:02)
[2019-08-04 02:18] LABS: ABS Eosinophils 0.1 10^3/ul (0-0.6); ABS Lymphocytes 0.9 10^3/ul (1.0-4.8); ABS Monocytes 0.2 10^3/ul (0-0.8); ABS Neutrophils 3.5 10^3/ul (1.5-7.7); Hematocrit 27 % (35-47); Hemoglobin 9.1 g/dL (12.0-16.0); Lymphocyte % 19.6 %; Mean Corpuscular HGB Conc 34 g/dL (31-36); Mean Corpuscular Hemoglobin 31 pg (27-31); Mean Corpuscular Volume 90 fL (80-97); Mean Platelet Volume 7.3 fL (7.4-10.4); Platelet Count 212 10^3/uL (150-450); Red Blood Count 2.98 10^6 /uL (3.70-4.87); Red Cell Distribution Width 13 % (10-15); White Blood Count 4.8 10^3/uL (3.5-10.8)
[2019-08-04] MEDS: Cyclobenzaprine TAB* 10 MG PO PRN ×3 (06:35→22:03)
--- NOTE | 2019-08-04 07:12 | PN ---
Subjective Date of Service: 08/04/19 Interval History: Tmax 100.2. No overnight events. She feels okay this morning, "just sore." Has not had a bowel movement. Objective Active Medications: Acetaminophen (Tylenol Tab*) 650 mg PO Q4H PRN PRN Reason: PAIN - MILD OR FEVER Last Admin: 08/02/19 05:12 Dose: 650 mg Albuterol (Ventolin Hfa Inhaler*) 2 puff INH Q6H PRN PRN Reason: SHORTNESS OF BREATH Bupropion HCl (Bupropion Xl*) 300 mg PO QAM [facility] Last Admin: 08/03/19 10:05 Dose: 300 mg Cyclobenzaprine HCl (Flexeril Tab*) 10 mg PO TID PRN PRN Reason: SPASMS - BACK Last Admin: 08/04/19 06:35 Dose: 10 mg Docusate Sodium (Colace Cap*) 200 mg PO DAILY PRN PRN Reason: CONSTIPATION Last Admin: 08/03/19 21:45 Dose: 200 mg Gabapentin (Neurontin Cap(*)) 300 mg PO TID [facility] Last Admin: 08/03/19 21:44 Dose: 300 mg Hydromorphone HCl (Dilaudid Inj*) 0.5 mg IV SLOW PU Q2H PRN PRN Reason: PAIN - SEVERE Last Admin: 08/02/19 03:10 Dose: 0.5 mg Ceftriaxone Sodium 1 gm/ (Sodium Chloride) 50 mls @ 100 mls/hr IVPB Q24H [facility] Last Admin: 08/03/19 18:32 Dose: 100 mls/hr Azithromycin 250 mg/ Sodium (Chloride) 250 mls @ 250 mls/hr IVPB Q24H [facility] Sodium Chloride (Ns 0.9% 1000 Ml) 1,000 mls @ 150 mls/hr IV PER RATE [facility] Last Admin: 08/04/19 01:38 Dose: 150 mls/hr Heparin Sodium/Dextrose (Heparin Drip 25,000 Units(*)) 25,000 units in 500 mls @ 0 mls/hr IV PER RATE [facility]; Protocol Last Admin: 08/03/19 19:44 Dose: 26 mls/hr Ketorolac Tromethamine (Toradol Inj*) 30 mg IV PUSH Q6H PRN PRN Reason: PAIN - MODERATE Last Admin: 08/03/19 22:00 Dose: 30 mg Magnesium Hydroxide (Milk Of Magnesia Liq*) 30 ml PO Q4H PRN PRN Reason: CONSTIPATION Last Admin: 08/03/19 21:45 Dose: 30 ml Oxycodone HCl (Roxycodone Tab*) 10 mg PO Q4H PRN PRN Reason: PAIN - MODERATE Last Admin: 08/04/19 06:34 Dose: 10 mg Pantoprazole Sodium (Protonix Tab*) 40 mg PO QAM [facility] Last Admin: 08/03/19 08:47 Dose: 40 mg Polyethylene Glycol/Electrolytes (Miralax*) 17 gm PO BID [facility] Last Admin: 08/03/19 21:44 Dose: 17 gm Senna (Senokot 8.6 Mg Tab*) 1 tab PO DAILY PRN PRN Reason: CONSTIPATION Last Admin: 08/03/19 21:45 Dose: 1 tab Tiotropium [place]/Olodaterol (Stiolto Respimat Inh [place] (60 Puff)) 2 puff INH QAM [facility] Last Admin: 08/03/19 07:54 Dose: 2 puff Vital Signs - 8 hr 08/04/19 08/04/19 08/04/19 01:54 02:58 06:34 Temperature 99.2 F Pulse Rate 105 Respiratory 18 16 18 Rate Blood Pressure 108/60 (mmHg) O2 Sat by Pulse 98 Oximetry 08/04/19 06:35 Temperature Pulse Rate Respiratory 18 Rate Blood Pressure (mmHg) O2 Sat by Pulse Oximetry Oxygen Devices in Use Now: None Appearance: alert, sitting up in the chair, tired appearing Eyes: No Scleral Icterus Ears/Nose/Mouth/Throat: - - dry mucosa Neck: NL Appearance and Movements; NL JVP Respiratory: Symmetrical Chest Expansion and Respiratory Effort, Clear to Auscultation Cardiovascular: NL Sounds; No Murmurs; No JVD Abdominal: - - hypoactive bowel sounds Lymphatic: No Cervical Adenopathy Extremities: No Edema Skin: No Rash or Ulcers, - - incision is dressed, dressings are clean and dry Neurological: Alert and Oriented x 3, NL Sensation, NL Muscle Strength and Tone Result Diagrams: 08/04/19 01:59 08/03/19 17:52 Microbiology and Other Data: Microbiology 08/01/19 02:15 Nasal Screen MRSA (PCR) - Final Nasal Mrsa Not Detected Assess/Plan/Problems-Billing Assessment: 54 year old woman with lumbar osteoarthritis failing conservative therapy s/p arthrodesis on 07/[address] Pompa - Patient Problems (1) Status post arthrodesis Current Visit: Yes Status: Acute Code(s): Z98.1 - ARTHRODESIS STATUS SNOMED Code(s): 832782408 Comment: POD #4 pain controlled with dilaudid and oxycodone increase bowel regimen again today--suspect a postop ileus tolerating PO PT again today plan for PMRU tomorrow (2) Pulmonary embolism Current Visit: Yes Status: Acute Code(s): I26.99 - OTHER PULMONARY EMBOLISM WITHOUT ACUTE COR PULMONALE SNOMED Code(s): 09451212 Comment: subsegmental heparin iv for now; subsegmental PEs should only be treated in people with high risk of recurrence (ie. post-op, hospitalization, or with leg dvts) she has no leg dvts, so will plan to treat with anticoagulation while she is hospitalized and immobilized (3) Infiltrate noted on imaging study Current Visit: Yes Status: Acute Code(s): R93.89 - ABNORMAL FINDINGS ON DX IMAGING OF OTH BODY STRUCTURES SNOMED Code(s): 851470560 Comment: atelectasis vs. developing infiltrate iv abx for now; no sputum to culture can switch to po abx when transferred to pmru (4) Postoperative fever Current Visit: Yes Status: Acute Code(s): R50.82 - POSTPROCEDURAL FEVER SNOMED Code(s): 903896990 Comment: likely related to thrombus and atelectasis vs. pneumonia resolved over past 24 hours on abx (5) Anemia Current Visit: Yes Status: Acute Code(s): D64.9 - ANEMIA, UNSPECIFIED SNOMED Code(s): 802329697 Comment: likely post-op no indication for transfusion stable this am (6) HTN (hypertension) Current Visit: Yes Status: Acute Code(s): I10 - ESSENTIAL (PRIMARY) HYPERTENSION SNOMED Code(s): 54122168 Comment: normotensive off lisinopril
[2019-08-04] MEDS: Gabapentin CAP(*) 300 MG PO SCH ×3 (10:10→22:03)
[2019-08-04] MEDS: Pantoprazole TAB * 40 MG TAB PO SCH (10:10)
[2019-08-04] MEDS: BuPROPion XL* 300 MG TAB.XL PO SCH (10:10)
[2019-08-04] MEDS: Polyethylene Glycol 3350* 17 GM PACKET PO SCH ×2 (10:11→22:06)
[2019-08-04] MEDS: Lactulose* 15 ML UDC PO SCH ×3 (10:12→22:06)
[2019-08-04] MEDS: Tiotropium Brom/Olodaterol MDI INH SCH (10:14)
--- NOTE | 2019-08-04 10:22 | PN ---
Progress Note - Progress Note Date of Service: 08/04/19 SOAP: Subjective: [] Yesterday she completed a CT scan that demonstrated a PE, her DVT study was negative. Currently denies chest pain or SOB, Heaprin has been started by medicine team. This mornins she doing better continues to have muscle [place] from surgery, but feel the numbness in the left leg is improving. At this time she has only walked to bathroom, but has not attempted to walk the hallway with PT/ OT. She still has not had a bowel movement or passed gas, currently pending admission to rehab. Objective: [] Initial Vitals Temp Pulse Resp BP Pulse Ox 98.8 F 80 16 116/70 98 07/25/19 14:07/25/19 14:07/25/19 14:07/25/19 14:07/25/19 14:09 General : Patient sitting up in chair, NAD. Neuro: A&O x 3 CN II - XII grossly intact. EOM intact. pupils equal in size, Upper extremity motor strength 5/5 throughout, lower motor strength intact 5/5 through out, sensation intact to dull touch. Derm: Small amount of drainage on dressing Assessment: [] 54 y/o female post fusion T10 - S1 POD #4 patient is doing better but still has not attempted to walk with PT, only ambulating to rest room. Plan: []1) Pain control as needed 2) Encourage ambulation 3)DVT prophylaxis 4)Follow medicine recommendations 5)D/C planning to rehab.
[2019-08-04] MEDS: Docusate CAP* 100 MG PO PRN (10:49)
[2019-08-04] MEDS: Heparin DRIP 25,000 UNITS(*) 25,000 UNITS/500 ML BAG IV SCH (14:29)
[2019-08-04] MEDS ORDERED: Azithromycin IV(*) 250 MG in NS 0.9% 250 ML* 250 ML IVPB SCH (15:00)
[2019-08-04] MEDS ORDERED: NS 0.9% 250 ML* 250 ML ONE (15:05)
[2019-08-04] MEDS: cefTRIAXone(*) 1 GM in NS 0.9% 50 ML* 50 ML IVPB SCH (16:57)
[2019-08-05] MEDS: oxyCODONE TAB* 5 MG TAB PO PRN ×2 (02:44→09:02)
[2019-08-05] MEDS: Acetaminophen TAB* 325 MG PO PRN (02:44)
[2019-08-05 04:26] LABS: ABS Eosinophils 0.2 10^3/ul (0-0.6); ABS Lymphocytes 1.3 10^3/ul (1.0-4.8); ABS Monocytes 0.3 10^3/ul (0-0.8); ABS Neutrophils 3.1 10^3/ul (1.5-7.7); Eosinophil % 3.1 %; Hematocrit 26 % (35-47); Hemoglobin 8.9 g/dL (12.0-16.0); Lymphocyte % 27.1 %; Mean Corpuscular HGB Conc 34 g/dL (31-36); Mean Corpuscular Hemoglobin 31 pg (27-31); Mean Corpuscular Volume 89 fL (80-97); Mean Platelet Volume 6.8 fL (7.4-10.4); Nucleated Red Blood Cells % 0.1; Platelet Count 240 10^3/uL (150-450); Red Blood Count 2.92 10^6 /uL (3.70-4.87); Red Cell Distribution Width 13 % (10-15); White Blood Count 4.9 10^3/uL (3.5-10.8)
[2019-08-05 04:56] LABS: EGFR African American 132.1 (>60); EGFR Non-African American 109.2 (>60)
[2019-08-05] MEDS: Heparin DRIP 25,000 UNITS(*) 25,000 UNITS/500 ML BAG IV SCH (05:07)
--- NOTE | 2019-08-05 07:28 | PN ---
Subjective Date of Service: 08/05/19 Interval History: Tmax 100.6 yesterday at 8am. Objective Active Medications: Acetaminophen (Tylenol Tab*) 650 mg PO Q4H PRN PRN Reason: PAIN - MILD OR FEVER Last Admin: 08/05/19 02:44 Dose: 650 mg Albuterol (Ventolin Hfa Inhaler*) 2 puff INH Q6H PRN PRN Reason: SHORTNESS OF BREATH Bupropion HCl (Bupropion Xl*) 300 mg PO QAM [facility] Last Admin: 08/04/19 10:10 Dose: 300 mg Cyclobenzaprine HCl (Flexeril Tab*) 10 mg PO TID PRN PRN Reason: SPASMS - BACK Last Admin: 08/04/19 22:03 Dose: 10 mg Docusate Sodium (Colace Cap*) 200 mg PO DAILY PRN PRN Reason: CONSTIPATION Last Admin: 08/04/19 10:49 Dose: 200 mg Gabapentin (Neurontin Cap(*)) 300 mg PO TID [facility] Last Admin: 08/04/19 22:03 Dose: 300 mg Hydromorphone HCl (Dilaudid Inj*) 0.5 mg IV SLOW PU Q2H PRN PRN Reason: PAIN - SEVERE Last Admin: 08/02/19 03:10 Dose: 0.5 mg Ceftriaxone Sodium 1 gm/ (Sodium Chloride) 50 mls @ 100 mls/hr IVPB Q24H [facility] Last Admin: 08/04/19 16:57 Dose: 100 mls/hr Azithromycin 250 mg/ Sodium (Chloride) 250 mls @ 250 mls/hr IVPB Q24H [facility] Last Admin: 08/04/19 15:17 Dose: 250 mls/hr Ketorolac Tromethamine (Toradol Inj*) 30 mg IV PUSH Q6H PRN PRN Reason: PAIN - MODERATE Last Admin: 08/03/19 22:00 Dose: 30 mg Lactulose (Lactulose*) 15 ml PO TID [facility] Last Admin: 08/04/19 22:06 Dose: Not Given Magnesium Hydroxide (Milk Of Magnesia Liq*) 30 ml PO Q4H PRN PRN Reason: CONSTIPATION Last Admin: 08/03/19 21:45 Dose: 30 ml Oxycodone HCl (Roxycodone Tab*) 10 mg PO Q4H PRN PRN Reason: PAIN - MODERATE Last Admin: 08/05/19 02:44 Dose: 10 mg Pantoprazole Sodium (Protonix Tab*) 40 mg PO QAM [facility] Last Admin: 08/04/19 10:10 Dose: 40 mg Polyethylene Glycol/Electrolytes (Miralax*) 17 gm PO BID [facility] Last Admin: 08/04/19 22:06 Dose: Not Given Senna (Senokot 8.6 Mg Tab*) 1 tab PO DAILY PRN PRN Reason: CONSTIPATION Last Admin: 08/03/19 21:45 Dose: 1 tab Tiotropium [place]/Olodaterol (Stiolto Respimat Inh [place] (60 Puff)) 2 puff INH QAM [facility] Last Admin: 08/04/19 10:14 Dose: 2 puff Vital Signs - 8 hr 08/05/19 08/05/19 08/05/19 00:05 01:20 01:30 Temperature 99.1 F Pulse Rate 97 Respiratory 16 14 14 Rate Blood Pressure 120/65 (mmHg) O2 Sat by Pulse 96 Oximetry 08/05/19 08/05/19 02:44 05:10 Temperature 98.8 F Pulse Rate 95 Respiratory 16 16 Rate Blood Pressure 113/63 (mmHg) O2 Sat by Pulse 91 Oximetry Oxygen Devices in Use Now: None Result Diagrams: 08/05/19 04:17 08/05/19 04:18 Microbiology and Other Data: Microbiology 08/01/19 02:15 Nasal Screen MRSA (PCR) - Final Nasal Mrsa Not Detected Assess/Plan/Problems-Billing Assessment: 54 year old woman with lumbar osteoarthritis failing conservative therapy s/p arthrodesis on 07/[address] Pompa - Patient Problems (1) Status post arthrodesis Current Visit: Yes Status: Acute Code(s): Z98.1 - ARTHRODESIS STATUS SNOMED Code(s): 124588022 Comment: POD #5 pain controlled with dilaudid and oxycodone successful bowel movement yesterday tolerating PO PMRU today plan for PMRU tomorrow (2) Pulmonary embolism Current Visit: Yes Status: Acute Code(s): I26.99 - OTHER PULMONARY EMBOLISM WITHOUT ACUTE COR PULMONALE SNOMED Code(s): 46059946 Comment: subsegmental subsegmental PEs should be treated in people with high risk of recurrence (ie. post-op, hospitalization, or with leg dvts) she will need treatment for 3 months plan to DC heparin now; has had no evidence of bleeding x 36 hours; and start therapeutic lovenox for PMRU stay (3) Infiltrate noted on imaging study Current Visit: Yes Status: Acute Code(s): R93.89 - ABNORMAL FINDINGS ON DX IMAGING OF OTH BODY STRUCTURES SNOMED Code(s): 552378280 Comment: atelectasis vs. developing infiltrate switch to po abx now no sputum for cx (4) Postoperative fever Current Visit: Yes Status: Acute Code(s): R50.82 - POSTPROCEDURAL FEVER SNOMED Code(s): 704293410 Comment: likely related to thrombus and atelectasis vs. pneumonia (5) Anemia Current Visit: Yes Status: Acute Code(s): D64.9 - ANEMIA, UNSPECIFIED SNOMED Code(s): 104071989 Comment: likely post-op no indication for transfusion stable this am (6) HTN (hypertension) Current Visit: Yes Status: Acute Code(s): I10 - ESSENTIAL (PRIMARY) HYPERTENSION SNOMED Code(s): 19007613 Comment: normotensive off lisinopril
[2019-08-05] MEDS: Gabapentin CAP(*) 300 MG PO SCH (09:00)
[2019-08-05] MEDS: Docusate CAP* 100 MG PO PRN (09:00)
[2019-08-05] MEDS: Pantoprazole TAB * 40 MG TAB PO SCH (09:01)
[2019-08-05] MEDS: Tiotropium Brom/Olodaterol MDI INH SCH (09:04)
[2019-08-05] MEDS: Lactulose* 15 ML UDC PO SCH (09:11)
[2019-08-05] MEDS: Polyethylene Glycol 3350* 17 GM PACKET PO SCH (09:11)
--- NOTE | 2019-08-05 09:11 | PN ---
Progress Note - Progress Note Date of Service: 08/05/19 SOAP: Subjective: [] Patient is doing better today, she indicates this is the best she has felt since surgery. She was able to walk the hallway yesterday also this morning and did well. After taking the Lactulose patient had multiple bowel movements. She denies and CP, SOB or fevers and has been stable overnight. She does have some edema and lower extremities but denies any calf pain. Also reports that left thigh numbness continues to improve. She possible go to PMRU today. Objective: [] Initial Vitals Temp Pulse Resp BP Pulse Ox 98.8 F 80 16 116/70 98 07/25/19 14:07/25/19 14:09 07/25/19 14:07/25/19 14:07/25/19 14:09 General : Patient sitting up at the edge chair finishing breakfast, NAD. Neuro: A&O x 3 CN II - XII grossly intact. EOM intact. pupils equal in size, Upper extremity motor strength 5/5 throughout, lower motor strength intact 5/5 through out, sensation intact to dull touch. Lower extremity edema right > left. Derm: Dressing clean and intact: Assessment: [] 54 y/o female post T10 - S1 POD # 5 patient is doing better today, has ambulated and was steady on her feet, her vitals have been stable overnight. She is ready for rehab, currently pending admission. Plan: [] 1) Encourage to ambulate 2) Continue IS 3) Continue Prophylaxis per medicine 4) Follow medicine recommendations 5) PMRU admission
[2019-08-05] MEDS: BuPROPion XL* 300 MG TAB.XL PO SCH (09:17)
[2019-08-05] MEDS ORDERED: Enoxaparin(*) 100 MG/ML SYR SUBCUT SCH (12:00)
[2019-08-05 12:47] VITALS: BP 142/70
--- NOTE | 2019-08-05 13:40 | DS ---
CC: Radha Rodriguez NP * DISCHARGE SUMMARY: DATE OF ADMISSION: 07/31/19 DATE OF DISCHARGE: 08/05/19 PRINCIPAL DISCHARGE DIAGNOSES: 1. Status post T10 to S1 and pelvis posterolateral fusion with bilateral instrumentation and pedicle screws. T10, T11, T12, L1, L2, L3, L4, L5, and S1 and bilateral S2 AI screws with left L3-L4, L4-L5, and L5-S1 TLIF with bilateral facetectomies. 2. Subsegmental pulmonary embolus. 3. Pneumonia. SECONDARY DISCHARGE DIAGNOSES: 1. Hypertension. 2. Anemia. MEDICATIONS AT THE TIME OF DISCHARGE: 1. Albuterol 2 puffs q.6 p.r.n. wheezing. 2. Omeprazole 40 mg daily. 3. Tums 3 tabs daily p.r.n. 4. Gabapentin 300 t.i.d. 5. Anoro 1 puff inhaled daily. 6. Bupropion XL 300 mg daily. 7. Oxycodone 10 mg q.4 p.r.n. pain. 8. MiraLAX 17 g daily p.r.n. constipation. 9. Augmentin 875 mg b.i.d. for 5 more days. 10. Lovenox 100 mg subcutaneously q.12. PHYSICAL EXAMINATION AT DISCHARGE: Vital Signs: Temp 98.1, heart rate 86, respiratory rate 16, pulse ox 94% on room air, blood pressure 113/60. General: Alert, well-appearing woman in no distress. Resting in the recliner. HEENT: Pupils are equal, round, and reactive to light. Oral mucosa is moist. Neck: No JVP. No adenopathy. Chest: She is a regular rate and rhythm with no murmurs. Her lungs are clear bilaterally. Abdomen: Soft, nontender, and nondistended. No guarding or rebound. Extremities: Her strength is 4/5 in bilateral lower extremities, limited by pain. Upper extremity strength is 5/5. Her sensation is intact in all extremities. Skin: The incision is dressed with no drainage through the dressings. HOSPITAL COURSE BY PROBLEM: 1. Postop day 5 from extensive neurosurgical arthrodesis with Dr. Pompa. Her pain has been controlled. She has had a bowel movement. Her Toro was removed on postop day 2. She ambulated early and has been working with physical therapy with good progress each day. 2. Subsegmental pulmonary embolism. Her postop course was complicated by persistent low-grade fevers and tachycardia. A CT angio was obtained, which showed a subsegmental pulmonary embolism. Given her risk for recurrence because of her postop state and current immobility, I treated her with heparin IV after getting approval and agreement from Dr. Pompa. She has had no bleeding complications. I am now switching her to Lovenox for while she is in [email or web address] I am choosing Lovenox in case she should have any bleeding complications in this postoperative time. However, when she is discharged from [facility] [email or web address]], I would recommend switching her to Eliquis and she should be treated for a total of 3 months and then anticoagulation can be discontinued. She has no oxygen requirement. Her heart rate is normal and she has no lower extremity DVTs. 3. Pneumonia. When she was having low-grade fevers and tachycardia, the CT angio also showed a developing infiltrate. She did have significant postop pain and had difficulty taking a deep breath, so it is not unreasonable that she may have developed a small pneumonia and I have treated this with ceftriaxone. Upon discharge, she should be treated with 5 more days of Augmentin and then this could be discontinued. 4. Hypertension. Her lisinopril was discontinued and has not had to be restarted during her postoperative course. Should she become hypertensive, the lisinopril can be restarted. DISPOSITION: Ms. Alonzo is being discharged to [facility] [email or web address]] on 08/05/19. CONDITION AT THE TIME OF DISCHARGE: Stable. [id number]/CPS #: [id number] MTDD
--- NOTE | 2019-08-07 21:05 | PN ---
Progress Note - Progress Note Date of Service: 08/07/19 Note: Today she is POD # 7 and her second day in PMRU. She is more stable with ambulation and was able to stand and take a couple of steps while neurosurgery was at bed side. Her pain has improved and she is doing better with transferring. Patient reports that she will be in rehab for at least a week, Neurosurgery will periodically check in on patient.
== END 2019-08-05 13:30 | DRG 453 ==
LOC: AA 07-31 05:56 → ICU 07-31 23:21 → SSU 08-01 09:58 → PMRU 08-05 13:47 → SSU 08-05 13:47
PROVIDERS: ADMIT Neurological Surgery; ATTEND Internal Medicine
PROC: 0SG10AJ Fusion of 2 or more Lumbar Vertebral Joints with Interbody Fusion Device, Posterior Approach, Anterior Column, Open Approach (ICD-10-PCS; 2019-07-31)
PROC: 0RGA0K1 Fusion of Thoracolumbar Vertebral Joint with Nonautologous Tissue Substitute, Posterior Approach, Posterior Column, Open Approach (ICD-10-PCS; 2019-07-31)
PROC: 0SB20ZZ Excision of Lumbar Vertebral Disc, Open Approach (ICD-10-PCS; 2019-07-31)
PROC: 0SG30AJ Fusion of Lumbosacral Joint with Interbody Fusion Device, Posterior Approach, Anterior Column, Open Approach (ICD-10-PCS; 2019-07-31)
PROC: 8E0WXBZ Computer Assisted Procedure of Trunk Region (ICD-10-PCS; 2019-07-31)
PROC: 0RG60K1 Fusion of Thoracic Vertebral Joint with Nonautologous Tissue Substitute, Posterior Approach, Posterior Column, Open Approach (ICD-10-PCS; principal; 2019-07-31 07:30)
DX: M47.27 Other spondylosis with radiculopathy, lumbosacral region (principal); J18.9 Pneumonia, unspecified organism; I26.99 Other pulmonary embolism without acute cor pulmonale; Z68.41 Body mass index [BMI] 40.0-44.9, adult; M41.87 Other forms of scoliosis, lumbosacral region; M19.90 Unspecified osteoarthritis, unspecified site; M43.16 Spondylolisthesis, lumbar region; M48.061 Spinal stenosis, lumbar region without neurogenic claudication; F17.210 Nicotine dependence, cigarettes, uncomplicated; M47.26 Other spondylosis with radiculopathy, lumbar region; E66.8 Other obesity; M47.25 Other spondylosis with radiculopathy, thoracolumbar region; F32.9 Major depressive disorder, single episode, unspecified; G89.29 Other chronic pain; K21.9 Gastro-esophageal reflux disease without esophagitis; I10 Essential (primary) hypertension; J45.909 Unspecified asthma, uncomplicated; R50.82 Postprocedural fever; D64.9 Anemia, unspecified; Z79.01 Long term (current) use of anticoagulants
CPT/HCPCS: 36415; 71045; 71275; 72081; 72100; 76000; 80048; 81003; 81015; 82272; 82565; 83001; 83002; 84520; 84702; 85014; 85018; 85025; 85027; 85730; 87086; 87641; 90686; 93970; 94640; A9270-GY; C1713; C1776; C9359; G8978-GP-CK; G8979-GP-CI; G8987-GO-CM; G8988-GO-CI; J0456; J0690; J0696; J1100; J1170; J1650; J1885; J2250; J2270; J2405; J2704; J3010; J3370; J3535; Q9967

== ENCOUNTER 2019-08-02 10:26 | Inpatient (IN) | payer MEDICARE, MEDICAID ==
[2019-08-05] MEDS ORDERED: Al Hydrox/Mg Hydrox/Simet LIQ* 30 ML UDC PO PRN (12:18)
[2019-08-05] MEDS ORDERED: Bisacodyl SUPP* 10 MG SUPP PR PRN (12:18)
[2019-08-05] MEDS ORDERED: Magnesium Hydroxide LIQ* 30 ML UDC PO PRN (12:18)
[2019-08-05] MEDS ORDERED: Acetaminophen TAB* 325 MG PO PRN (12:18)
[2019-08-05] MEDS ORDERED: oxyCODONE TAB* 5 MG TAB PO PRN (12:31)
[2019-08-05] MEDS ORDERED: Gabapentin CAP(*) 100 MG PO SCH (14:00)
[2019-08-05] MEDS: oxyCODONE TAB* 5 MG TAB PO PRN ×3 (14:21→22:47)
[2019-08-05] MEDS ORDERED: Gabapentin CAP(*) 300 MG PO SCH (14:26)
--- NOTE | 2019-08-05 15:44 | HP ---
CC: [facility]; Dr. Pompa * REHABILITATION ADMISSION: DATE OF ADMISSION: 08/05/19 PRIMARY CARE PROVIDER: [facility]. NEUROSURGEON: Dr. Pompa. REASON FOR ADMISSION: Status post T10 to S1 and pelvis fusion and left L3 to S1 TLIF. HISTORY OF PRESENT ILLNESS: This is a 54-year-old woman who initially developed issues with back and leg pains in 2014. She had surgery at the end of that year, which included L3-4 and L5-S1 diskectomies with some decompression by Dr. Maki. She continued having back pain issues and the development of leg symptoms. Her leg pains have included sciatica on both sides as well as tingling at various areas in both of her legs. She saw Dr. Pompa, who noted also her scoliosis and some spondylolisthesis and recommended surgery. It took quite some time to finally get authorization for her surgery. She was taken to the OR on 07/31/19 and underwent T10 to S1 and pelvis posterolateral fusion with bilateral instrumentation and left L3 to S1 TLIF. Postoperatively, she began to experience intermittent fevers. Chest x- ray on 08/03/19 was negative, but later a CTA of the chest revealed subsegmental pulmonary emboli in the right lower lobe as well as a left lower lobe infiltrate. She was started on azithromycin and ceftriaxone as well as a heparin drip. Her white blood cell count has come back down to normal and over the last 24 hours her fever has stopped. She is overall feeling better. Since surgery, she has back pain, but her leg symptoms are much better. There is some numbness in her left lateral thigh, felt likely to be due to positioning. Her neurological exam has been stable with anticoagulation and today she is starting Lovenox 100 mg q.12 hours as well as transitioning to oral antibiotics for 5 more days. Plans for her to have a total of 3 months of anticoagulation. At discharge from the rehab unit, she can switch to Eliquis 5 mg b.i.d. once again for a total of 3 months. Prior to admission, she was independent with mobility using a straight cane. With occupational therapy here in the hospital , she required 2 total assists for dressing and toileting. With physical therapy, she required a min amount of assistance for bed mobility, transfers and contact guard assistance for ambulation using a rolling walker. PAST MEDICAL HISTORY: 1. Status post left L3-4 diskectomy and decompression and right L5-S1 diskectomy in 2015. 2. Osteoarthritis. 3. Asthma. 4. Hypertension. 5. GERD. 6. Tubal . 7. Status post tubal ligation. 8. Pneumonia, see history of present illness. 9. Pulmonary embolism, see history of present illness. 10. Status post T10 to S1 and pelvis, posterolateral fusion with bilateral instrumentations and left L3 to S1 TLIF, see history of present illness. MEDICATIONS: 1. Bupropion XL 300 mg q.a.m. 2. Lactulose, she received 50 mL t.i.d. yesterday due to constipation and that is now being switched to p.r.n. 3. MiraLAX 17 g b.i.d. 4. Gabapentin 300 mg t.i.d. 5. Protonix 40 mg q.a.m. 6. Stiolto Respimat inhaler 2 puffs q.a.m. (this was substituted for Anoro Ellipta 1 puff daily that she takes at home). 7. Augmentin 1 tablet b.i.d. starting today for a 5-day course and a total of 7 days total of antibiotics. 8. Colace 100 mg b.i.d. 9. Flexeril 10 mg t.i.d. p.r.n. back spasms. 10. Milk of Magnesia p.r.n. 11. Oxycodone 5 mg p.o. q.4 hours p.r.n. moderate pain, 10 mg p.o. q.4 hours p.r.n. severe pain. 12. Senokot 2 tablets q.h.s. 13. Tylenol 650 mg p.o. q.4 hours p.r.n. mild pain or fever. 14. Ventolin 2 puffs q.6 hours p.r.n. shortness of breath. 15. Lovenox 100 mg q.12 hours while on the PMRU and at discharge can transition to Eliquis 5 mg b.i.d. for a total of 3 months of anticoagulation. ALLERGIES: No known drug allergies. FAMILY HISTORY: Mother had coronary artery disease. She is estranged from her father. SOCIAL HISTORY: She lives with her , who is her healthcare proxy if she cannot make decisions for herself. His name is Stanford. They have 2 grown children. She quit smoking about a month ago and does not plan to restart. She has not worked since 2014 due to her back issues and is on social security disability. Their home is a mobile home with 4 steps to enter and then on one level. There is room for her to have access in the bathroom and ambulate in the home using a walker. PHYSICAL EXAMINATION GENERAL: Well-developed, well-nourished, appearing stated age. Mental Status: No acute distress. Alert and oriented x3. VITAL SIGNS: Temperature 98.1, pulse 86, respirations 16, oxygenation 94% on room air, blood pressure 113/60. HEENT: Normocephalic, atraumatic. Oropharynx is clear. Moist mucous membranes. LUNGS: Clear to auscultation bilaterally except for there is wheeze in the left lower lobe. This is with expiration. HEART: Regular rate and rhythm. ABDOMEN: Active bowel sounds. Soft, nontender, nondistended. EXTREMITIES: No clubbing or cyanosis. She does have trace ankle edema bilaterally. MUSCULOSKELETAL: She has functional range of motion of all of her major joints with some limited testing of her shoulders and her hips due to increased back pain. NEUROLOGICAL: Cranial nerves II through XII are intact. Upper and lower extremity motor at least 4+/5 bilaterally with some pain limitation. Sensation is intact x4 except for an area in the left lateral thigh where there is decreased sensation. LABORATORY DATA: On 08/05/19, white blood cell count is 4.9, hemoglobin 8.9, hematocrit 26, platelets 240. On 08/03/19, sodium 134, potassium 4.1, chloride 99, carbon dioxide 33, BUN 17, creatinine 0.64. IMPRESSION: 1. This is a 54-year-old woman with history of scoliosis, status post T10 to S1 and pelvis fusion. She will need to follow up with Dr. Pompa. Her dressing is to be changed as needed. She is using oxycodone for pain, we will wean off as tolerated. Continue with gabapentin. 2. Hypertension. She has been off of her home dose of lisinopril since admission and has been normotensive. 3. Depression. Continue bupropion. 4. Constipation. Likely due to opioid medications. Continue with aggressive bowel program and using lactulose as needed. 5. Asthma. Albuterol as needed. Continue with scheduled Stiolto, which substitutes for her home Anoro Ellipta. 6. Pulmonary embolism, right lower lobe and deep vein thrombosis prophylaxis. She is on anticoagulation doses of Lovenox while she is on the PMRU and at discharge can transition to Eliquis 5 mg b.i.d. She needs a total of 3 months of anticoagulation, which started on 08/03/19, when she was diagnosed with pulmonary embolism. 7. Postoperative pneumonia, left lower lobe. Incentive spirometry. Five more days of Augmentin. Today is day #1. 8. Acute postoperative anemia. Follow up of labs. 9. Advanced directives. She is a full code. Her is her healthcare proxy if she cannot make decisions for herself. 10. Estimated length of stay is 1 week and then return to home. [id number]/[id number] #: [id number] MTDD
[2019-08-05] MEDS: Cyclobenzaprine TAB* 10 MG PO PRN (17:08)
[2019-08-05] MEDS: Amoxicillin/Clavulanate TAB* 875 MG PO SCH ×2 (17:50→21:03)
[2019-08-05] MEDS: Docusate CAP* 100 MG PO SCH (21:04)
[2019-08-05] MEDS: Gabapentin CAP(*) 300 MG PO SCH (21:04)
[2019-08-05] MEDS: Senna TAB 8.6 mg* TAB PO SCH (21:04)
[2019-08-05] MEDS: Enoxaparin(*) 100 MG/ML SYR SUBCUT SCH (21:07)
[2019-08-05] MEDS: Polyethylene Glycol 3350* 17 GM PACKET PO SCH (21:19)
[2019-08-06] MEDS: oxyCODONE TAB* 5 MG TAB PO PRN ×5 (04:33→21:28)
[2019-08-06 04:40] LABS: ABS Basophils 0.1 10^3/ul (0-0.2); ABS Eosinophils 0.2 10^3/ul (0-0.6); ABS Lymphocytes 1.4 10^3/ul (1.0-4.8); ABS Monocytes 0.4 10^3/ul (0-0.8); ABS Neutrophils 3.6 10^3/ul (1.5-7.7); Eosinophil % 3.7 %; Hematocrit 27 % (35-47); Lymphocyte % 24.4 %; Mean Corpuscular HGB Conc 34 g/dL (31-36); Mean Corpuscular Hemoglobin 30 pg (27-31); Mean Corpuscular Volume 89 fL (80-97); Mean Platelet Volume 6.7 fL (7.4-10.4); Nucleated Red Blood Cells % 0.1; Platelet Count 286 10^3/uL (150-450); Red Blood Count 2.98 10^6 /uL (3.70-4.87); Red Cell Distribution Width 13 % (10-15); White Blood Count 5.7 10^3/uL (3.5-10.8)
[2019-08-06 04:59] LABS: Albumin 2.9 g/dL (3.2-5.2); Albumin/Globulin Ratio 1.3 (1-3); BUN/Creatinine Ratio 18.8 (8-20); Calcium 8.1 mg/dL (8.6-10.3); EGFR African American 117.9 (>60); EGFR Non-African American 97.4 (>60); Globulin 2.2 g/dL (2-4); Potassium 3.8 mmol/L (3.5-5.0); Total Bilirubin 0.3 mg/dL (0.2-1.0); Total Protein 5.1 g/dL (6.4-8.9)
[2019-08-06] MEDS: Cyclobenzaprine TAB* 10 MG PO PRN ×2 (06:35→12:40)
[2019-08-06] MEDS: BuPROPion XL* 300 MG TAB.XL PO SCH (08:40)
[2019-08-06] MEDS: Gabapentin CAP(*) 300 MG PO SCH ×3 (08:40→21:27)
[2019-08-06] MEDS: Pantoprazole TAB * 40 MG TAB PO SCH (08:40)
[2019-08-06] MEDS: Polyethylene Glycol 3350* 17 GM PACKET PO SCH ×2 (08:42→21:29)
[2019-08-06] MEDS: Amoxicillin/Clavulanate TAB* 875 MG PO SCH ×2 (08:42→21:27)
[2019-08-06] MEDS: Tiotropium Brom/Olodaterol MDI INH SCH (08:43)
[2019-08-06] MEDS: Docusate CAP* 100 MG PO SCH ×2 (08:43→21:27)
[2019-08-06] MEDS: Enoxaparin(*) 100 MG/ML SYR SUBCUT SCH ×2 (11:05→21:29)
--- NOTE | 2019-08-06 18:25 | PN ---
Progress Note Date of Service: 08/06/19 Note: MADDIE SHIPMAN was visited. Therapy notes read and reviewed. She complains of pain in her back. She is taking oxycodone 10 mg; may need 15. Also on gabapentin and flexeril. On Lovenox for PE and Augmentin for pneumonia Current Medications: Active Medications Generic Name Dose Route Start Last Admin Trade Name Freq PRN Reason Stop Dose Admin Acetaminophen 650 mg 08/05/19 12:32 Tylenol Tab* PO Q4H PRN FEVER > 101 or mild pain Al Hydrox/Mg Hydrox/Simethicone 30 ml 08/05/19 12:18 Maalox Plus* PO Q6H PRN INDIGESTION Albuterol 2 puff 08/05/19 12:32 Ventolin Hfa Inhaler* INH Q6H PRN SOB/WHEEZING Amoxicillin/Clavulanate Potassium 875 mg 08/05/19 12:28 08/06/19 08:42 Augmentin Tab* PO 08/11/19 23:59 875 mg BID AZALEA Administration Bisacodyl 10 mg 08/05/19 12:18 Dulcolax Supp* [place] DAILY PRN CONSTIPATION Bupropion HCl 300 mg 08/06/19 09:00 08/06/19 08:40 Bupropion Xl* PO 300 mg DAILY AZALEA Administration Cyclobenzaprine HCl 10 mg 08/05/19 12:30 08/06/19 12:40 Flexeril Tab* PO 10 mg TID PRN Administration back spasms Docusate Sodium 100 mg 08/05/19 21:00 08/06/19 08:43 Colace Cap* PO 100 mg BID AZALEA Administration Enoxaparin Sodium 100 mg 08/05/19 22:00 08/06/19 11:05 Lovenox(*) SUBCUT 100 mg Q12HR@1100,2200 AZALEA Administration Gabapentin 300 mg 08/05/19 21:00 08/06/19 14:39 Neurontin Cap(*) PO 300 mg TID AZALEA Administration Lactulose 30 ml 08/05/19 12:18 08/06/19 17:13 Lactulose* PO 30 ml Q6H PRN Administration CONSTIPATION Magnesium Hydroxide 30 ml 08/05/19 12:18 Milk Of Magnesia Liq* PO Q6H PRN CONSTIPATION Oxycodone HCl 10 mg 08/05/19 12:30 08/06/19 17:08 Roxycodone Tab* PO 10 mg Q4H PRN Administration PAIN - SEVERE Oxycodone HCl 5 mg 08/05/19 12:31 Roxycodone Tab* PO Q4H PRN PAIN - MODERATE Pantoprazole Sodium 40 mg 08/06/19 09:00 08/06/19 08:40 Protonix Tab* PO 40 mg DAILY AZALEA Administration Polyethylene Glycol/Electrolytes 17 gm 08/05/19 21:00 08/06/19 08:42 Miralax* PO 17 gm 0800,2100 AZALEA Administration Senna 2 tab 08/05/19 21:00 08/05/19 21:04 Senokot 8.6 Mg Tab* PO 2 tab BEDTIME AZALEA Administration Tiotropium [place]/Olodaterol 2 puff 08/06/19 09:00 08/06/19 08:43 Stiolto Respimat Inh [place] (60 Puff) INH 2 puff DAILY AZALEA Administration Vital Signs: Vital Signs Temp Pulse Resp BP Pulse Ox 98.6 F 92 16 114/63 97 08/06/19 17:33 08/06/19 17:33 08/06/19 17:33 08/06/19 17:33 08/06/19 18:18 Lab Results: Laboratory Results - last 24 hr 08/06/19 08/06/19 04:29 04:29 WBC 5.7 RBC 2.98 L Hgb 9.0 L Hct 27 L MCV 89 MCH 30 MCHC 34 RDW 13 Plt Count 286 MPV 6.7 L Neut % (Auto) 63.2 Lymph % (Auto) 24.4 [place] % (Auto) 7.4 Eos % (Auto) 3.7 Baso % (Auto) 1.3 Absolute Neuts (auto) 3.6 Absolute Lymphs (auto) 1.4 Absolute Monos (auto) 0.4 Absolute Eos (auto) 0.2 Absolute Basos (auto) 0.1 Absolute Nucleated RBC 0.0 Nucleated RBC % 0.1 Sodium 134 L Potassium 3.8 Chloride 102 Carbon Dioxide 27 Anion Gap 5 BUN 12 Creatinine 0.64 Est GFR ( Amer) 117.9 Est GFR (Non-Af Amer) 97.4 BUN/Creatinine Ratio 18.8 Glucose 124 H Calcium 8.1 L Total Bilirubin 0.30 AST 23 ALT 29 Alkaline Phosphatase 81 Total Protein 5.1 L Albumin 2.9 L Globulin 2.2 Albumin/Globulin Ratio 1.3 Exam: HEENT: EOMI LUNGS: Clear to auscultation HEART: Regular rhythm ABDOMEN: Soft +BS EXTREMITIES: Normal tone BACK: Wound C/D/I NEUROLOGIC: A&O. Sensation Intact. Strength close to 5/5 in legs Assessment/Plan: 1. 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 Dressing change 2. Pulmonary Embolus: Lovenox. Will switch to Eliquis 5 BID at discharge 3. Pneumonia: Augmentin, day 2/5 4. Depression: Wellbutrin 5. Hypertension: BP low after PE. Holding Lisinopril 6: Advanced Directives: Full Code 08/06/19 18:30 08/06/19 18:31
--- NOTE | 2019-08-06 19:40 | PN ---
Progress Note - Progress Note Date of Service: 08/06/19 SOAP: Subjective: []Patient in RU. Feels better today. Has been able to participate in PT, feels tired. Tolerates po well. Voids. Pain well controlled. No LE pain. Objective: []VSS, Afebrile Wound s,c,d AAOxe BOBO, CN II-XII grossly intact Motor 5/5 all extremities Sensory grossly intact to light touch. LLE numbness improving Assessment: []54 yof K40-Tzbbeo PLT arthrodesis and left L3-4, L4-5, L5-S1 TLIF Plan: []Monitor VS, Neurochecks On Lovenox Follow Rehabilitation program Consider nutrition consult DC planning. Greatly appreciate [facility] care. Yudith Pompa MD
[2019-08-06] MEDS: Senna TAB 8.6 mg* TAB PO SCH (21:27)
[2019-08-07] MEDS: oxyCODONE TAB* 5 MG TAB PO PRN ×6 (00:28→21:45)
[2019-08-07] MEDS: Polyethylene Glycol 3350* 17 GM PACKET PO SCH ×2 (08:22→20:53)
[2019-08-07] MEDS: Gabapentin CAP(*) 300 MG PO SCH ×3 (08:23→20:53)
[2019-08-07] MEDS: Amoxicillin/Clavulanate TAB* 875 MG PO SCH ×2 (08:23→20:53)
[2019-08-07] MEDS: Docusate CAP* 100 MG PO SCH ×2 (08:23→20:53)
[2019-08-07] MEDS: BuPROPion XL* 300 MG TAB.XL PO SCH (08:23)
[2019-08-07] MEDS: Pantoprazole TAB * 40 MG TAB PO SCH (08:24)
[2019-08-07] MEDS: Tiotropium Brom/Olodaterol MDI INH SCH (09:20)
[2019-08-07] MEDS: Cyclobenzaprine TAB* 10 MG PO PRN ×2 (11:08→21:01)
--- NOTE | 2019-08-07 12:37 | PMRUTEAM ---
PMRU: Team Meeting Current Status: Nursing: Current Status Skin Deviations [Midline Rash Abdomen] Skin Deviations [Left Arm] Bruise,Previous Access Point Skin Deviations [Left Hand] Previous Access Point Skin Deviations [Right Thigh] Rash Skin Deviations [Midline Back] Incision Skin Deviation Description [ redness Left abdomenal fold] Skin Deviation Description [ pt reports irritation likely d/t tape during Midline Abdomen] surgery Skin Deviation Description [ from IV access Left Arm] Skin Deviation Description [ dressing removed Left Hand] Skin Deviation Description [ pt reports irritation likely d/t tape during Right Thigh] surgery Physical Therapy: Current Status Bed Mobility Assistance Mod Assist Transfer Mobility Assistance Contact Guard Assist Transfer/Bed Mobility Rolling Walker Recommended Devices Ambulation Assistance Contact Guard Assist Ambulation Assistive Devices Rolling Walker Number of Feet Patient 2x150 Ambulated Stairs Assistance Min Assist Stairs Recommended Devices Two Rails Number of Stairs 4 Curb Min Assist Curb Assistive Devices Rolling Walker Objective Comments Pt exhibits increased cough and mild SOB this session requiring frequent rest breaks throughout session. Occupational Therapy: Current Status Upper Body Dressing Min Assist Lower Body Dressing Mod Assist,Max Asst Bathing Mod Assist Toileting Max Asst,Total Assist Toilet Transfer Contact Guard Assist,Min Assist Eating Independent Rec Therapy: Current Status Summary of Assessment and Recreation Therapy assessment completed and pt. is Clinical Impression aware of services. Pt. is open to leisure visits and pet therapy while on the unit. Treatment Goals Pt. will engage in leisure activities while on the unit. Treatment Plan Provide recreation therapy services and encourage involvement. Provide emotional support as needed Nutrition: Current Status Monitoring pt adm to PMRU 08/05. Full nutrition assessment planned 08/12 per NDS protocol. Tentative goals as outlined below. Goals: Physical Therapy: Initial Goals Bed Mobility Assistance Independent Transfer Mobility Assistance Independent Transfer/Bed Mobility Rolling Walker Recommended Devices Ambulation Independent Ambulation Recommended Devices Rolling Walker Ambulation Distance 150 Stairs Assistance Supervision Stair Recommended Devices Two Rails Number of Stairs 4 Home Exercise Program Independent Assistance Physical Therapy: Updated Goals Transfer/Bed Mobility Rolling Walker Recommended Devices Occupational Therapy: Initial Goals Goals to be Completed in (Days 7-10 ) Upper Body Bathing Routine Modified Independent with Lower Body Bathing Routine Modified Independent with Upper Body Dressing Routine Modified Independent with Lower Body Dressing Routine Modified Independent with Toilet Hygeine and Clothing Modified Independent with Management Routine Toilet Transfer Routine Modified Independent with Step-In Shower Transfer Supervision/Set Up Routine Functional Transfers for ADL Modified Independent with Grooming Routine Independent Feeding Routine Independent Nutrition: Goals Intervention Goals 1. adequate intake to support hydration, stable wt, and lean body mass without add'l wt gain 2. maintain serum electrolytes WNL 3. regulation of bowel pattern; no c/o constipation (or diarrhea) Care Plan: Care Plan ADL's - Improve/Maintain Start: 08/05/19 19:48 Freq: DAILY@0700,1900 Status: Active Target: 08/06/19 Protocol: Activity Type Activity Date Activity User E-Sign Co-Sign Detail Recorded Client Recorded Date Recorded By Document 08/06/19 16:23 [id number] 08/06/19 16:23 [id number] 08/06/19 16:23 PMRU Outcome: ADL's/ADL Transfers Orders/Interventions Occupational Therapy Evaluation & Treatment Communication Tool in Patient Room Device Yes Address Deficits Secondary To: fusion Patient to receive OT 5x/wk for 60-120 Therex min/day Self Care Management Group Therapy UE/LE ADL's with Assist Yes: Sheila ADL Transfers with Assist Yes: Sheila Toileting: Transfers,Clothing Management Yes: Sheila ,Hygeine w/Assist Light Kitchen/Laundry w/Assist No Other Outcome/Goals Pt is a 54 y/o female s/p T10- S1 and pelvis posterolateral fusion with bilateral instrumentation and pedicle screws T10, T11 , T12, L1, L2, L3, L4, L5, and S1, and bilateral S2A1 screws with L3, L4, L4-L5, and L5-S1 TLIF with bilateral facectomies presenting with limited endurance, decreased strength, balance deficits, and increased pain affecting bathing, toileting, dressing and functional mobility/ transfers. Pt will benefit from skilled OT services to maximize independence and safety with ADL routine. Progression Toward Outcome/Goals Goal Initiation Discharge Planning - Improve/Maintain Start: 08/05/19 19:48 Freq: DAILY@0700,1900 Status: Active Target: 08/12/19 Protocol: Activity Type Activity Date Activity User E-Sign Co-Sign Detail Recorded Client Recorded Date Recorded By Document 08/07/19 01:13 [id number] [id number] 08/07/19 01:14 [id number] 08/07/19 01:13 PMRU Outcome: Discharge Planning Update Patient Family No Current Discharge Planning Outcome/Goals Demonstrates Understanding of Discharge Plan Progression Toward Outcome/Goals Progressing Education-Improve/Maintain Start: 08/05/19 19:48 Freq: DAILY@0700,1900 Status: Active Target: 08/12/19 Protocol: Activity Type Activity Date Activity User E-Sign Co-Sign Detail Recorded Client Recorded Date Recorded By Document 08/07/19 01:13 [id number] 08/07/19 01:14 [id number] 08/07/19 01:13 PMRU Outcome: Education Current Education Outcome/Goals Demonstrate/ Verbalize Understanding of Written Discharge Instructions Demonstrates Skills Encourage Questions Progression Toward Outcome/Goals Progressing /GI-Improve/Maintain Start: 08/05/19 19:48 Freq: DAILY@0700,1900 Status: Active Target: 08/12/19 Protocol: Activity Type Activity Date Activity User E-Sign Co-Sign Detail Recorded Client Recorded Date Recorded By Document 08/07/19 01:13 [id number] 08/07/19 01:14 [id number] 08/07/19 01:13 PMRU Outcome: Genitourinary/ Gastrointestinal Current Gastrointestinal Outcome/Goals Maintain/ Achieve Bowel Regularity in Accordance with Pt's Baseline Remain Free of Emesis Prevent Constipation Progression Toward Outcome/Goals Progressing Current Genitourinary Outcome/Goals Maintain/ Achieve Urinary Continence Maintain/ Achieve Adequate Urinary Output Progression Toward Outcome/Goals Progressing Outcome/Goals Met Comment Pt up to BR Mobility- Improve/Maintain Start: 08/05/19 19:48 Freq: DAILY@0700,1900 Status: Active Target: 08/14/19 Protocol: Activity Type Activity Date Activity User E-Sign Co-Sign Detail Recorded Client Recorded Date Recorded By Document 08/07/19 09:28 [id number] 08/07/19 09:32 [id number] 08/07/19 09:28 PMRU Outcome: Mobility Physical Therapy Evaluation and Yes Treatment Activity OOB with Assistance Yes WBAT Yes NWB No TTWB No Device Yes Assistance Yes Patient to be seen 5x/wk for 60-120 min/ Therex day for: Mobility Training Gait Training Balance Current Mobility Outcome/Goals Improve Mobility Status Progression Toward Outcome/Goals Goal Initiation Bed Mobility Yes: I Transfers Yes: I with RW Gait x ft Yes: 150' I with RW W/C Mobility x ft No Up/Down Stairs Yes: 4 with 2 rail, I With HEP Yes: I Neurological- Improve/Maintain Start: 08/05/19 19:48 Freq: DAILY@0700,0 Status: Active Target: 08/12/19 Protocol: Activity Type Activity Date Activity User E-Sign Co-Sign Detail Recorded Client Recorded Date Recorded By Document 08/07/19 01:13 [id number] 08/07/19 01:14 [id number] 08/07/19 01:13 PMRU Outcome: Neurological Weakness/Aphasia Weakness Current Neurological Outcome/Goals Improve Neurological Status Maintain/ Improve Strength/ROM Progression Toward Outcome/Goals Progressing Pain/Comfort- Improve/Maintain Start: 08/05/19 19:48 Freq: DAILY@699,1899 Status: Active Target: 08/12/19 Protocol: Activity Type Activity Date Activity User E-Sign Co-Sign Detail Recorded Client Recorded Date Recorded By Document 08/07/19 01:13 [id number] 08/07/19 01:14 [id number] 08/07/19 01:13 PMRU Outcome: Pain/Comfort Current Pain/Comfort Outcome/Goals Demonstrates Knowledge and Use of Available Comfort Measures Achieves Acceptable Comfort/Pain Level as Determined by Patient/Condit Maintain Comfort Level Allowing Patient to Fully Participate in Rehab Progression Toward Outcome/Goals Progressing Outcome/Goals Met Comment pain medication given Rec Therapy- Improve/Maintain Start: 08/06/19 16:09 Freq: DAILY@699,1899 Status: Active Target: 08/07/19 Protocol: Activity Type Activity Date Activity User E-Sign Co-Sign Detail Recorded Client Recorded Date Recorded By Document 08/06/19 16:09 [id number] 08/06/19 16:09 [id number] 08/06/19 16:09 PMRU Outcome: Recreation Therapy Current Rec Ther Outcome/Goals Complete Rec Therapy Assessment Meet with Patient Regularly for Support Encourage Leisure Involvement Progression Toward Outcome/Goals Goal Initiation Safety- Improve/Maintain Start: 08/05/19 14:20 Freq: DAILY@699,190 Status: Active Target: 08/12/19 Protocol: Activity Type Activity Date Activity User E-Sign Co-Sign Detail Recorded Client Recorded Date Recorded By Document 08/07/19 01:13 [id number] 08/07/19 01:14 [id number] 08/07/19 01:13 PMRU Outcome: Safety Current Safety Outcome/Goals Remain Free of Injury or Harm Cooperates with Safety Measures for Least Restrictive Environment Prevent Falls/ Injury Progression Toward Outcome/Goals Progressing Medicine Note: Length of Stay: 8 days Anticipated Discharge Destination: Tentative Discharge Date: 08/15/19 Discharged to: Home
[2019-08-07] MEDS: Enoxaparin(*) 100 MG/ML SYR SUBCUT SCH ×2 (13:21→20:55)
--- NOTE | 2019-08-07 20:05 | PN ---
Progress Note Date of Service: 08/07/19 Note: MADDIE SHIPMAN was visited. Therapy notes read and reviewed. The patient was discussed in interdisciplinary team rounds. She has some pain in her back. May need a long acting opioid but will hold off for now. Current Medications: Active Medications Generic Name Dose Route Start Last Admin Trade Name Freq PRN Reason Stop Dose Admin Acetaminophen 650 mg 08/05/19 12:32 Tylenol Tab* PO Q4H PRN FEVER > 101 or mild pain Al Hydrox/Mg Hydrox/Simethicone 30 ml 08/05/19 12:18 Maalox Plus* PO Q6H PRN INDIGESTION Albuterol 2 puff 08/05/19 12:32 Ventolin Hfa Inhaler* INH Q6H PRN SOB/WHEEZING Amoxicillin/Clavulanate Potassium 875 mg 08/05/19 12:28 08/07/19 08:23 Augmentin Tab* PO 08/11/19 23:59 875 mg BID AZALEA Administration Bisacodyl 10 mg 08/05/19 12:18 Dulcolax Supp* [place] DAILY PRN CONSTIPATION Bupropion HCl 300 mg 08/06/19 09:00 08/07/19 08:23 Bupropion Xl* PO 300 mg DAILY AZALEA Administration Cyclobenzaprine HCl 10 mg 08/05/19 12:30 08/07/19 11:08 Flexeril Tab* PO 10 mg TID PRN Administration back spasms Docusate Sodium 100 mg 08/05/19 21:00 08/07/19 08:23 Colace Cap* PO 100 mg BID AZALEA Administration Enoxaparin Sodium 100 mg 08/05/19 22:00 08/07/19 13:21 Lovenox(*) SUBCUT 100 mg Q12HR@1100,2200 AZALEA Administration Gabapentin 300 mg 08/05/19 21:00 08/07/19 13:21 Neurontin Cap(*) PO 300 mg TID AZALEA Administration Lactulose 30 ml 08/05/19 12:18 08/06/19 17:13 Lactulose* PO 30 ml Q6H PRN Administration CONSTIPATION Magnesium Hydroxide 30 ml 08/05/19 12:18 Milk Of Magnesia Liq* PO Q6H PRN CONSTIPATION Oxycodone HCl 10 mg 08/05/19 12:30 08/07/19 17:44 Roxycodone Tab* PO 10 mg Q4H PRN Administration PAIN - SEVERE Oxycodone HCl 5 mg 08/05/19 12:31 Roxycodone Tab* PO Q4H PRN PAIN - MODERATE Pantoprazole Sodium 40 mg 08/06/19 09:00 08/07/19 08:24 Protonix Tab* PO 40 mg DAILY AZALEA Administration Polyethylene Glycol/Electrolytes 17 gm 08/05/19 21:00 08/07/19 08:22 Miralax* PO 17 gm 0800,2100 AZALEA Administration Senna 2 tab 08/05/19 21:00 08/06/19 21:27 Senokot 8.6 Mg Tab* PO 2 tab BEDTIME AZALEA Administration Tiotropium [place]/Olodaterol 2 puff 08/06/19 09:00 08/07/19 09:20 Stiolto Respimat Inh [place] (60 Puff) INH 2 puff DAILY AZALEA Administration Vital Signs: Vital Signs Temp Pulse Resp BP Pulse Ox 98.2 F 97 20 122/68 98 08/07/19 17:02 08/07/19 17:02 08/07/19 17:44 08/07/19 17:02 08/07/19 19:06 Exam: HEENT: EOMI LUNGS: Clear to auscultation HEART: Regular rhythm ABDOMEN: Soft +BS EXTREMITIES: Normal tone BACK: Wound C/D/I NEUROLOGIC: A&O. Sensation Intact. Strength close to 5/5 in legs Assessment/Plan: 1. 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 Dressing change 2. Pulmonary Embolus: Lovenox. Will switch to Eliquis 5 BID at discharge 3. Pneumonia: Augmentin, day 3/5 4. Depression: Wellbutrin 5. Hypertension: BP low after PE. Holding Lisinopril 6: Advanced Directives: Full Code 08/07/19 20:05
[2019-08-07] MEDS: Senna TAB 8.6 mg* TAB PO SCH (20:53)
[2019-08-08] MEDS: oxyCODONE TAB* 5 MG TAB PO PRN ×5 (02:10→23:05)
[2019-08-08] MEDS: Amoxicillin/Clavulanate TAB* 875 MG PO SCH ×2 (09:11→21:41)
[2019-08-08] MEDS: Gabapentin CAP(*) 300 MG PO SCH ×3 (09:11→21:41)
[2019-08-08] MEDS: BuPROPion XL* 300 MG TAB.XL PO SCH (09:11)
[2019-08-08] MEDS: Polyethylene Glycol 3350* 17 GM PACKET PO SCH ×2 (09:11→21:42)
[2019-08-08] MEDS: Docusate CAP* 100 MG PO SCH ×2 (09:11→21:41)
[2019-08-08] MEDS: Pantoprazole TAB * 40 MG TAB PO SCH (09:12)
[2019-08-08] MEDS: Cyclobenzaprine TAB* 10 MG PO PRN ×3 (09:12→23:05)
[2019-08-08] MEDS: Albuterol HFA INHALER* 8 gm MDI INH PRN ×2 (09:13→16:37)
[2019-08-08] MEDS: Tiotropium Brom/Olodaterol MDI INH SCH (09:14)
[2019-08-08] MEDS: Enoxaparin(*) 100 MG/ML SYR SUBCUT SCH ×2 (12:07→21:46)
[2019-08-08] MEDS: Acetaminophen TAB* 325 MG PO PRN (12:18)
--- NOTE | 2019-08-08 20:33 | PN ---
Progress Note Date of Service: 08/08/19 Note: MADDIE SHIPMAN was visited. Therapy notes read and reviewed. She felt a little SOB today and used an inhaler. Otherwise has a cough and would like Robitussin Current Medications: Active Medications Generic Name Dose Route Start Last Admin Trade Name Freq PRN Reason Stop Dose Admin Acetaminophen 650 mg 08/05/19 12:32 08/08/19 12:18 Tylenol Tab* PO 650 mg Q4H PRN Administration FEVER > 101 or mild pain Al Hydrox/Mg Hydrox/Simethicone 30 ml 08/05/19 12:18 Maalox Plus* PO Q6H PRN INDIGESTION Albuterol 2 puff 08/05/19 12:32 08/08/19 16:37 Ventolin Hfa Inhaler* INH 2 puff Q6H PRN Administration SOB/WHEEZING Amoxicillin/Clavulanate Potassium 875 mg 08/05/19 12:28 08/08/19 09:11 Augmentin Tab* PO 08/11/19 23:59 875 mg BID AZALEA Administration Bisacodyl 10 mg 08/05/19 12:18 Dulcolax Supp* [place] DAILY PRN CONSTIPATION Bupropion HCl 300 mg 08/06/19 09:00 08/08/19 09:11 Bupropion Xl* PO 300 mg DAILY AZALEA Administration Cyclobenzaprine HCl 10 mg 08/05/19 12:30 08/08/19 19:11 Flexeril Tab* PO 10 mg TID PRN Administration back spasms Docusate Sodium 100 mg 08/05/19 21:00 08/08/19 09:11 Colace Cap* PO 100 mg BID AZALEA Administration Enoxaparin Sodium 100 mg 08/05/19 22:00 08/08/19 12:07 Lovenox(*) SUBCUT 100 mg Q12HR@1100,2200 AZALEA Administration Gabapentin 300 mg 08/05/19 21:00 08/08/19 14:12 Neurontin Cap(*) PO 300 mg TID AZALEA Administration Lactulose 30 ml 08/05/19 12:18 08/06/19 17:13 Lactulose* PO 30 ml Q6H PRN Administration CONSTIPATION Magnesium Hydroxide 30 ml 08/05/19 12:18 Milk Of Magnesia Liq* PO Q6H PRN CONSTIPATION Oxycodone HCl 10 mg 08/05/19 12:30 08/08/19 19:08 Roxycodone Tab* PO 10 mg Q4H PRN Administration PAIN - SEVERE Oxycodone HCl 5 mg 08/05/19 12:31 Roxycodone Tab* PO Q4H PRN PAIN - MODERATE Pantoprazole Sodium 40 mg 08/06/19 09:00 08/08/19 09:12 Protonix Tab* PO 40 mg DAILY AZALEA Administration Polyethylene Glycol/Electrolytes 17 gm 08/05/19 21:00 08/08/19 09:11 Miralax* PO 17 gm 0800,2100 AZALEA Administration Senna 2 tab 08/05/19 21:00 08/07/19 20:53 Senokot 8.6 Mg Tab* PO 2 tab BEDTIME AZALEA Administration Tiotropium [place]/Olodaterol 2 puff 08/06/19 09:00 08/08/19 09:14 Stiolto Respimat Inh [place] (60 Puff) INH 2 puff DAILY AZALEA Administration Vital Signs: Vital Signs Temp Pulse Resp BP Pulse Ox 98.5 F 105 18 121/68 93 08/08/19 16:50 08/08/19 16:50 08/08/19 19:40 08/08/19 16:50 08/08/19 16:50 Exam: HEENT: EOMI LUNGS: Clear to auscultation HEART: Regular rhythm ABDOMEN: Soft +BS EXTREMITIES: Normal tone BACK: Wound C/D/I NEUROLOGIC: A&O. Sensation Intact. Strength close to 5/5 in legs Assessment/Plan: 1. 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 Dressing change 2. Pulmonary Embolus: Lovenox. Will switch to Eliquis 5 BID at discharge 3. Pneumonia: Augmentin, day 4/ 4. Depression: Wellbutrin 5. Hypertension: BP low after PE. Holding Lisinopril 6: Advanced Directives: Full Code 08/08/19 20:34
[2019-08-08] MEDS: Senna TAB 8.6 mg* TAB PO SCH (21:41)
[2019-08-08] MEDS: guaiFENesin 100 mg/5 ml LIQ unit dose cup PO PRN (21:42)
[2019-08-09] MEDS: oxyCODONE TAB* 5 MG TAB PO PRN ×4 (03:11→21:18)
[2019-08-09] MEDS: Docusate CAP* 100 MG PO SCH ×2 (08:43→19:53)
[2019-08-09] MEDS: Pantoprazole TAB * 40 MG TAB PO SCH (08:43)
[2019-08-09] MEDS: Gabapentin CAP(*) 300 MG PO SCH ×3 (08:43→19:52)
[2019-08-09] MEDS: Polyethylene Glycol 3350* 17 GM PACKET PO SCH ×2 (08:44→19:53)
[2019-08-09] MEDS: Amoxicillin/Clavulanate TAB* 875 MG PO SCH ×2 (08:46→19:53)
[2019-08-09] MEDS: BuPROPion XL* 300 MG TAB.XL PO SCH (08:50)
[2019-08-09] MEDS: Tiotropium Brom/Olodaterol MDI INH SCH (08:50)
[2019-08-09] MEDS: guaiFENesin 100 mg/5 ml LIQ unit dose cup PO PRN ×2 (08:54→16:33)
[2019-08-09] MEDS: Enoxaparin(*) 100 MG/ML SYR SUBCUT SCH ×2 (12:18→21:19)
[2019-08-09] MEDS: Acetaminophen TAB* 325 MG PO PRN (16:32)
[2019-08-09] MEDS: Cyclobenzaprine TAB* 10 MG PO PRN ×2 (16:32→21:18)
--- NOTE | 2019-08-09 17:25 | PN ---
Progress Note Date of Service: 08/09/19 Note: MADDIE SHIPMAN was visited. Therapy notes read and reviewed. She has no complaints. Cough a little better. Still on Augmentin Current Medications: Active Medications Generic Name Dose Route Start Last Admin Trade Name Freq PRN Reason Stop Dose Admin Acetaminophen 650 mg 08/05/19 12:32 08/09/19 16:32 Tylenol Tab* PO 650 mg Q4H PRN Administration FEVER > 101 or mild pain Al Hydrox/Mg Hydrox/Simethicone 30 ml 08/05/19 12:18 Maalox Plus* PO Q6H PRN INDIGESTION Albuterol 2 puff 08/05/19 12:32 08/08/19 16:37 Ventolin Hfa Inhaler* INH 2 puff Q6H PRN Administration SOB/WHEEZING Amoxicillin/Clavulanate Potassium 875 mg 08/05/19 12:28 08/09/19 08:46 Augmentin Tab* PO 08/11/19 23:59 875 mg BID AZALEA Administration Bisacodyl 10 mg 08/05/19 12:18 Dulcolax Supp* [place] DAILY PRN CONSTIPATION Bupropion HCl 300 mg 08/06/19 09:00 08/09/19 08:50 Bupropion Xl* PO 300 mg DAILY AZALEA Administration Cyclobenzaprine HCl 10 mg 08/05/19 12:30 08/09/19 16:32 Flexeril Tab* PO 10 mg TID PRN Administration back spasms Docusate Sodium 100 mg 08/05/19 21:00 08/09/19 08:43 Colace Cap* PO 100 mg BID AZALEA Administration Enoxaparin Sodium 100 mg 08/05/19 22:00 08/09/19 12:18 Lovenox(*) SUBCUT 100 mg Q12HR@1100,2200 AZALEA Administration Gabapentin 300 mg 08/05/19 21:00 08/09/19 14:13 Neurontin Cap(*) PO 300 mg TID AZALEA Administration Guaifenesin 5 ml 08/08/19 20:32 08/09/19 16:33 Robitussin* PO 5 ml Q6H PRN Administration COUGH Lactulose 30 ml 08/05/19 12:18 08/06/19 17:13 Lactulose* PO 30 ml Q6H PRN Administration CONSTIPATION Magnesium Hydroxide 30 ml 08/05/19 12:18 Milk Of Magnesia Liq* PO Q6H PRN CONSTIPATION Oxycodone HCl 10 mg 08/05/19 12:30 08/09/19 14:13 Roxycodone Tab* PO 10 mg Q4H PRN Administration PAIN - SEVERE Oxycodone HCl 5 mg 08/05/19 12:31 Roxycodone Tab* PO Q4H PRN PAIN - MODERATE Pantoprazole Sodium 40 mg 08/06/19 09:00 08/09/19 08:43 Protonix Tab* PO 40 mg DAILY AZALEA Administration Polyethylene Glycol/Electrolytes 17 gm 08/05/19 21:00 08/09/19 08:44 Miralax* PO 17 gm 0800,2100 AZALEA Administration Senna 2 tab 08/05/19 21:00 08/08/19 21:41 Senokot 8.6 Mg Tab* PO 2 tab BEDTIME AZALEA Administration Tiotropium [place]/Olodaterol 2 puff 08/06/19 09:00 08/09/19 08:50 Stiolto Respimat Inh [place] (60 Puff) INH 2 puff DAILY AZALEA Administration Vital Signs: Vital Signs Temp Pulse Resp BP Pulse Ox 98.6 F 109 18 113/66 96 08/09/19 15:59 08/09/19 15:59 08/09/19 16:32 08/09/19 15:59 08/09/19 15:59 Exam: HEENT: EOMI LUNGS: Clear to auscultation HEART: Regular rhythm ABDOMEN: Soft +BS EXTREMITIES: Normal tone BACK: Wound C/D/I NEUROLOGIC: A&O. Sensation Intact. Strength close to 5/5 in legs Assessment/Plan: 1. 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 Dressing change 2. Pulmonary Embolus: Lovenox. Will switch to Eliquis 5 BID at discharge 3. Pneumonia: Augmentin, finishes tomorrow after last dose 4. Depression: Wellbutrin 5. Hypertension: BP low after PE. Holding Lisinopril 6: Advanced Directives: Full Code 08/09/19 17:26 08/09/19 17:28
[2019-08-09] MEDS: Senna TAB 8.6 mg* TAB PO SCH (19:52)
--- NOTE | 2019-08-09 23:15 | PN ---
Progress Note - Progress Note Date of Service: 08/09/19 SOAP: Subjective: []Patient in PMRU. Seen during PT. Tolerates po well. Voids. Pain well controlled. No LE pain. Objective: []VSS, Afebrile Wound s,c,d AAOx3 BOBO, CN II-XII grossly intact Motor 5/5 all extremities Sensory grossly intact to light touch. LLE numbness almost resolved Assessment: []54 yof [id number] PLT arthrodesis and left L3-4, L4-5, L5-S1 TLIF Plan: [] On Lovenox Follow Rehabilitation program Consider nutrition consult Greatly appreciate PMRU care. Yudith Pompa MD
[2019-08-10] MEDS: Acetaminophen TAB* 325 MG PO PRN ×2 (00:39→15:42)
[2019-08-10] MEDS: Cyclobenzaprine TAB* 10 MG PO PRN ×3 (01:21→22:01)
[2019-08-10] MEDS: oxyCODONE TAB* 5 MG TAB PO PRN ×5 (01:21→22:02)
[2019-08-10] MEDS: guaiFENesin 100 mg/5 ml LIQ unit dose cup PO PRN ×3 (02:14→22:03)
[2019-08-10] MEDS: Tiotropium Brom/Olodaterol MDI INH SCH (10:03)
[2019-08-10] MEDS: Polyethylene Glycol 3350* 17 GM PACKET PO SCH ×2 (10:03→22:08)
[2019-08-10] MEDS: Albuterol HFA INHALER* 8 gm MDI INH PRN (10:04)
[2019-08-10] MEDS: Gabapentin CAP(*) 300 MG PO SCH ×3 (10:05→22:01)
[2019-08-10] MEDS: Amoxicillin/Clavulanate TAB* 875 MG PO SCH ×2 (10:05→22:00)
[2019-08-10] MEDS: Docusate CAP* 100 MG PO SCH ×2 (10:05→22:00)
[2019-08-10] MEDS: BuPROPion XL* 300 MG TAB.XL PO SCH (10:05)
[2019-08-10] MEDS: Pantoprazole TAB * 40 MG TAB PO SCH (10:05)
[2019-08-10] MEDS ORDERED: oxyCODONE TAB* 5 MG TAB PO ONE (12:34)
[2019-08-10] MEDS: Enoxaparin(*) 100 MG/ML SYR SUBCUT SCH ×2 (12:54→22:07)
--- NOTE | 2019-08-10 19:47 | PN ---
Progress Note Date of Service: 08/10/19 Note: MADDIE SHIPMAN was visited. Therapy notes read and reviewed. She is doing fairly well with pain control but earlier had a pain flare requiring to get her meds an hour early. Current Medications: Active Medications Generic Name Dose Route Start Last Admin Trade Name Freq PRN Reason Stop Dose Admin Acetaminophen 650 mg 08/05/19 12:32 08/10/19 15:42 Tylenol Tab* PO 650 mg Q4H PRN Administration FEVER > 101 or mild pain Al Hydrox/Mg Hydrox/Simethicone 30 ml 08/05/19 12:18 Maalox Plus* PO Q6H PRN INDIGESTION Albuterol 2 puff 08/05/19 12:32 08/10/19 10:04 Ventolin Hfa Inhaler* INH 2 puff Q6H PRN Administration SOB/WHEEZING Amoxicillin/Clavulanate Potassium 875 mg 08/05/19 12:28 08/10/19 10:05 Augmentin Tab* PO 08/11/19 23:59 875 mg BID AZALEA Administration Bisacodyl 10 mg 08/05/19 12:18 Dulcolax Supp* [place] DAILY PRN CONSTIPATION Bupropion HCl 300 mg 08/11/19 09:00 Wellbutrin Xl * PO DAILY AZALEA Cyclobenzaprine HCl 10 mg 08/05/19 12:30 08/10/19 10:08 Flexeril Tab* PO 10 mg TID PRN Administration back spasms Docusate Sodium 100 mg 08/05/19 21:00 08/10/19 10:05 Colace Cap* PO 100 mg BID AZALEA Administration Enoxaparin Sodium 100 mg 08/05/19 22:00 08/10/19 12:54 Lovenox(*) SUBCUT 100 mg Q12HR@1100,2200 AZALEA Administration Gabapentin 300 mg 08/05/19 21:00 08/10/19 15:40 Neurontin Cap(*) PO 300 mg TID AZALEA Administration Guaifenesin 5 ml 08/08/19 20:32 08/10/19 12:54 Robitussin* PO 5 ml Q6H PRN Administration COUGH Lactulose 30 ml 08/05/19 12:18 08/06/19 17:13 Lactulose* PO 30 ml Q6H PRN Administration CONSTIPATION Magnesium Hydroxide 30 ml 08/05/19 12:18 Milk Of Magnesia Liq* PO Q6H PRN CONSTIPATION Oxycodone HCl 10 mg 08/05/19 12:30 08/10/19 18:17 Roxycodone Tab* PO 10 mg Q4H PRN Administration PAIN - SEVERE Oxycodone HCl 5 mg 08/05/19 12:31 Roxycodone Tab* PO Q4H PRN PAIN - MODERATE Pantoprazole Sodium 40 mg 08/06/19 09:00 08/10/19 10:05 Protonix Tab* PO 40 mg DAILY AZALEA Administration Polyethylene Glycol/Electrolytes 17 gm 08/05/19 21:00 08/10/19 10:03 Miralax* PO 17 gm 0800,2100 AZALEA Administration Senna 2 tab 08/05/19 21:00 08/09/19 19:52 Senokot 8.6 Mg Tab* PO 2 tab BEDTIME AZALEA Administration Tiotropium [place]/Olodaterol 2 puff 08/06/19 09:00 08/10/19 10:03 Stiolto Respimat Inh [place] (60 Puff) INH 2 puff DAILY AZALEA Administration Vital Signs: Vital Signs Temp Pulse Resp BP Pulse Ox 97.5 F 97 16 109/64 97 08/10/19 04:53 08/10/19 04:53 08/10/19 18:19 08/10/19 04:53 08/10/19 08:00 Exam: HEENT: EOMI LUNGS: Clear to auscultation HEART: Regular rhythm ABDOMEN: Soft +BS EXTREMITIES: Normal tone BACK: Wound C/D/I NEUROLOGIC: A&O. Sensation Intact. Strength close to 5/5 in legs Assessment/Plan: 1. 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 Dressing change 2. Pulmonary Embolus: Lovenox. Will switch to Eliquis 5 BID at discharge 3. Pneumonia: Augmentin, finishes today after last dose 4. Depression: Wellbutrin 5. Hypertension: BP low after PE. Holding Lisinopril 6: Advanced Directives: Full Code 08/10/19 19:47
[2019-08-10] MEDS: Senna TAB 8.6 mg* TAB PO SCH (22:00)
[2019-08-11] MEDS: Acetaminophen TAB* 325 MG PO PRN ×2 (01:10→11:39)
[2019-08-11] MEDS: oxyCODONE TAB* 5 MG TAB PO PRN ×4 (03:30→18:20)
[2019-08-11] MEDS: Tiotropium Brom/Olodaterol MDI INH SCH (07:36)
[2019-08-11] MEDS: Albuterol HFA INHALER* 8 gm MDI INH PRN ×2 (07:38→13:29)
[2019-08-11] MEDS: Polyethylene Glycol 3350* 17 GM PACKET PO SCH ×2 (08:51→21:36)
[2019-08-11] MEDS: Amoxicillin/Clavulanate TAB* 875 MG PO SCH (08:52)
[2019-08-11] MEDS: Docusate CAP* 100 MG PO SCH ×2 (08:52→21:33)
[2019-08-11] MEDS: BuPROPion XL* 150 MG TAB.XL PO SCH (08:52)
[2019-08-11] MEDS: Gabapentin CAP(*) 300 MG PO SCH ×3 (08:53→21:30)
[2019-08-11] MEDS: guaiFENesin 100 mg/5 ml LIQ unit dose cup PO PRN ×2 (08:55→21:37)
[2019-08-11] MEDS: Pantoprazole TAB * 40 MG TAB PO SCH (08:55)
--- NOTE | 2019-08-11 10:14 | PN ---
Progress Note Date of Service: 08/11/19 Note: MADDIE SHIPMAN was visited. Therapy notes read and reviewed. Some increased back pain yesterday and today. She still has a cough. Finishing up Augmentin Current Medications: Active Medications Generic Name Dose Route Start Last Admin Trade Name Freq PRN Reason Stop Dose Admin Acetaminophen 650 mg 08/05/19 12:32 08/11/19 01:10 Tylenol Tab* PO 650 mg Q4H PRN Administration FEVER > 101 or mild pain Al Hydrox/Mg Hydrox/Simethicone 30 ml 08/05/19 12:18 Maalox Plus* PO Q6H PRN INDIGESTION Albuterol 2 puff 08/05/19 12:32 08/11/19 07:38 Ventolin Hfa Inhaler* INH 2 puff Q6H PRN Administration SOB/WHEEZING Amoxicillin/Clavulanate Potassium 875 mg 08/05/19 12:28 08/11/19 08:52 Augmentin Tab* PO 08/11/19 11:59 875 mg BID AZALEA Administration Bisacodyl 10 mg 08/05/19 12:18 Dulcolax Supp* CT DAILY PRN CONSTIPATION Bupropion HCl 300 mg 08/11/19 09:00 08/11/19 08:52 Wellbutrin Xl * PO 300 mg DAILY AZALEA Administration Cyclobenzaprine HCl 10 mg 08/05/19 12:30 08/10/19 22:01 Flexeril Tab* PO 10 mg TID PRN Administration back spasms Docusate Sodium 100 mg 08/05/19 21:00 08/11/19 08:52 Colace Cap* PO 100 mg BID AZALEA Administration Enoxaparin Sodium 100 mg 08/05/19 22:00 08/10/19 22:07 Lovenox(*) SUBCUT 100 mg Q12HR@1100,2200 AZALEA Administration Gabapentin 300 mg 08/05/19 21:00 08/11/19 08:53 Neurontin Cap(*) PO 300 mg TID AZALEA Administration Guaifenesin 5 ml 08/08/19 20:32 08/11/19 08:55 Robitussin* PO 5 ml Q6H PRN Administration COUGH Lactulose 30 ml 08/05/19 12:18 08/06/19 17:13 Lactulose* PO 30 ml Q6H PRN Administration CONSTIPATION Magnesium Hydroxide 30 ml 08/05/19 12:18 Milk Of Magnesia Liq* PO Q6H PRN CONSTIPATION Oxycodone HCl 10 mg 08/05/19 12:30 08/11/19 08:54 Roxycodone Tab* PO 10 mg Q4H PRN Administration PAIN - SEVERE Oxycodone HCl 5 mg 08/05/19 12:31 Roxycodone Tab* PO Q4H PRN PAIN - MODERATE Pantoprazole Sodium 40 mg 08/06/19 09:00 08/11/19 08:55 Protonix Tab* PO 40 mg DAILY AZALEA Administration Polyethylene Glycol/Electrolytes 17 gm 08/05/19 21:00 08/11/19 08:51 Miralax* PO 17 gm 0800,2100 AZALEA Administration Senna 2 tab 08/05/19 21:00 08/10/19 22:00 Senokot 8.6 Mg Tab* PO 2 tab BEDTIME AZALEA Administration Tiotropium [place]/Olodaterol 2 puff 08/06/19 09:00 08/11/19 07:36 Stiolto Respimat Inh [place] (60 Puff) INH 2 puff DAILY AZALEA Administration Vital Signs: Vital Signs Temp Pulse Resp BP Pulse Ox 98.2 F 102 18 105/59 94 08/11/19 05:13 08/11/19 05:13 08/11/19 08:54 08/11/19 05:13 08/11/19 05:13 Exam: HEENT: EOMI LUNGS: Scattered rhonchi HEART: Regular rhythm ABDOMEN: Soft +BS EXTREMITIES: Normal tone BACK: Wound C/D/I NEUROLOGIC: A&O. Sensation Intact. Strength close to 5/5 in legs Assessment/Plan: 1. 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 Dressing change 2. Pulmonary Embolus: Lovenox. Will switch to Eliquis 5 BID at discharge 3. Pneumonia: Augmentin, finished 4. Depression: Wellbutrin 5. Hypertension: BP low after PE. Holding Lisinopril 6: Advanced Directives: Full Code 08/11/19 10:15 08/11/19 10:15
[2019-08-11] MEDS: Enoxaparin(*) 100 MG/ML SYR SUBCUT SCH ×2 (11:37→21:34)
[2019-08-11] MEDS: Cyclobenzaprine TAB* 10 MG PO PRN (18:20)
[2019-08-11] MEDS: Senna TAB 8.6 mg* TAB PO SCH (21:33)
[2019-08-12] MEDS: oxyCODONE TAB* 5 MG TAB PO PRN ×3 (01:40→21:03)
[2019-08-12] MEDS: Tiotropium Brom/Olodaterol MDI INH SCH (07:17)
[2019-08-12] MEDS: Acetaminophen TAB* 325 MG PO PRN (09:03)
[2019-08-12] MEDS: Docusate CAP* 100 MG PO SCH ×2 (09:04→21:03)
[2019-08-12] MEDS: Polyethylene Glycol 3350* 17 GM PACKET PO SCH ×2 (09:04→21:03)
[2019-08-12] MEDS: BuPROPion XL* 150 MG TAB.XL PO SCH (09:04)
[2019-08-12] MEDS: Gabapentin CAP(*) 300 MG PO SCH ×3 (09:06→21:03)
[2019-08-12] MEDS: Albuterol HFA INHALER* 8 gm MDI INH PRN ×2 (09:08→21:04)
[2019-08-12] MEDS: guaiFENesin 100 mg/5 ml LIQ unit dose cup PO PRN ×2 (09:08→21:02)
[2019-08-12] MEDS: Pantoprazole TAB * 40 MG TAB PO SCH (09:12)
[2019-08-12] MEDS: Cyclobenzaprine TAB* 10 MG PO PRN (09:21)
[2019-08-12] MEDS: Enoxaparin(*) 100 MG/ML SYR SUBCUT SCH ×2 (11:15→21:04)
[2019-08-12] MEDS ORDERED: diPHENhydraMINE PO* 25 MG PO PRN (12:04)
--- NOTE | 2019-08-12 12:06 | PN ---
Progress Note Date of Service: 08/12/19 Note: MADDIE SHIPMAN was visited. Nursing notes read and reviewed. She complains of stuffiness and a cough at night. Will try Benadryl Current Medications: Active Medications Generic Name Dose Route Start Last Admin Trade Name Freq PRN Reason Stop Dose Admin Acetaminophen 650 mg 08/05/19 12:32 08/12/19 09:03 Tylenol Tab* PO 650 mg Q4H PRN Administration FEVER > 101 or mild pain Al Hydrox/Mg Hydrox/Simethicone 30 ml 08/05/19 12:18 Maalox Plus* PO Q6H PRN INDIGESTION Albuterol 2 puff 08/05/19 12:32 08/12/19 09:08 Ventolin Hfa Inhaler* INH 2 puff Q6H PRN Administration SOB/WHEEZING Bisacodyl 10 mg 08/05/19 12:18 Dulcolax Supp* [place] DAILY PRN CONSTIPATION Bupropion HCl 300 mg 08/11/19 09:00 08/12/19 09:04 Wellbutrin Xl * PO 300 mg DAILY AZALEA Administration Cyclobenzaprine HCl 10 mg 08/05/19 12:30 08/12/19 09:21 Flexeril Tab* PO 10 mg TID PRN Administration back spasms Diphenhydramine HCl 25 mg 08/12/19 12:04 Benadryl Po* PO BEDTIME PRN Allergy Symptoms Docusate Sodium 100 mg 08/05/19 21:00 08/12/19 09:04 Colace Cap* PO 100 mg BID AZALEA Administration Enoxaparin Sodium 100 mg 08/05/19 22:00 08/12/19 11:15 Lovenox(*) SUBCUT 100 mg Q12HR@1100,2200 AZALEA Administration Gabapentin 300 mg 08/05/19 21:00 08/12/19 09:06 Neurontin Cap(*) PO 300 mg TID AZALEA Administration Guaifenesin 5 ml 08/08/19 20:32 08/12/19 09:08 Robitussin* PO 5 ml Q6H PRN Administration COUGH Lactulose 30 ml 08/05/19 12:18 08/06/19 17:13 Lactulose* PO 30 ml Q6H PRN Administration CONSTIPATION Magnesium Hydroxide 30 ml 08/05/19 12:18 Milk Of Magnesia Liq* PO Q6H PRN CONSTIPATION Oxycodone HCl 10 mg 08/05/19 12:30 08/12/19 01:40 Roxycodone Tab* PO 10 mg Q4H PRN Administration PAIN - SEVERE Oxycodone HCl 5 mg 08/05/19 12:31 Roxycodone Tab* PO Q4H PRN PAIN - MODERATE Pantoprazole Sodium 40 mg 08/06/19 09:00 08/12/19 09:12 Protonix Tab* PO 40 mg DAILY AZALEA Administration Polyethylene Glycol/Electrolytes 17 gm 08/05/19 21:00 08/12/19 09:04 Miralax* PO 17 gm 0800,2100 AZALEA Administration Senna 2 tab 08/05/19 21:00 08/11/19 21:33 Senokot 8.6 Mg Tab* PO 2 tab BEDTIME AZALEA Administration Tiotropium [place]/Olodaterol 2 puff 08/06/19 09:00 08/12/19 07:17 Stiolto Respimat Inh [place] (60 Puff) INH 2 puff DAILY AZALEA Administration Vital Signs: Vital Signs Temp Pulse Resp BP Pulse Ox 98.8 F 101 14 107/63 94 08/12/19 05:20 08/12/19 05:20 08/12/19 11:20 08/12/19 05:20 08/12/19 05:20 Exam: HEENT: EOMI LUNGS: Scattered rhonchi HEART: Regular rhythm ABDOMEN: Soft +BS EXTREMITIES: Normal tone BACK: Wound C/D/I NEUROLOGIC: A&O. Sensation Intact. Strength close to 5/5 in legs Assessment/Plan: 1. 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 Dressing change 2. Pulmonary Embolus: Lovenox. Will switch to Eliquis 5 BID Tuesday 3. Pneumonia: Augmentin finished 4. Depression: Wellbutrin 5. Hypertension: BP low after PE. Holding Lisinopril 6: Advanced Directives: Full Code 08/12/19 12:06
[2019-08-12] MEDS: Senna TAB 8.6 mg* TAB PO SCH (21:03)
[2019-08-13] MEDS: oxyCODONE TAB* 5 MG TAB PO PRN ×4 (02:15→21:28)
[2019-08-13 04:55] LABS: ABS Basophils 0.1 10^3/ul (0-0.2); ABS Eosinophils 0.2 10^3/ul (0-0.6); ABS Monocytes 0.5 10^3/ul (0-0.8); ABS Neutrophils 5.4 10^3/ul (1.5-7.7); Eosinophil % 2.9 %; Hematocrit 31 % (35-47); Hemoglobin 10.2 g/dL (12.0-16.0); Lymphocyte % 24.6 %; Mean Corpuscular HGB Conc 33 g/dL (31-36); Mean Corpuscular Hemoglobin 30 pg (27-31); Mean Corpuscular Volume 90 fL (80-97); Mean Platelet Volume 6.4 fL (7.4-10.4); Nucleated Red Blood Cells % 0.1; Platelet Count 482 10^3/uL (150-450); Red Blood Count 3.45 10^6 /uL (3.70-4.87); Red Cell Distribution Width 14 % (10-15); White Blood Count 8.3 10^3/uL (3.5-10.8)
[2019-08-13 05:08] LABS: Albumin 3.2 g/dL (3.2-5.2); Albumin/Globulin Ratio 1.4 (1-3); BUN/Creatinine Ratio 19.4 (8-20); Calcium 8.8 mg/dL (8.6-10.3); EGFR African American 122.3 (>60); EGFR Non-African American 101.1 (>60); Globulin 2.3 g/dL (2-4); Potassium 4.2 mmol/L (3.5-5.0); Total Bilirubin 0.2 mg/dL (0.2-1.0); Total Protein 5.5 g/dL (6.4-8.9)
[2019-08-13] MEDS: Docusate CAP* 100 MG PO SCH ×2 (07:27→21:29)
[2019-08-13] MEDS: Pantoprazole TAB * 40 MG TAB PO SCH (07:27)
[2019-08-13] MEDS: Cyclobenzaprine TAB* 10 MG PO PRN ×2 (07:27→21:26)
[2019-08-13] MEDS: Gabapentin CAP(*) 300 MG PO SCH ×3 (07:27→21:29)
[2019-08-13] MEDS: Polyethylene Glycol 3350* 17 GM PACKET PO SCH ×2 (07:27→21:26)
[2019-08-13] MEDS: Tiotropium Brom/Olodaterol MDI INH SCH (07:28)
[2019-08-13] MEDS: BuPROPion XL* 150 MG TAB.XL PO SCH (07:29)
[2019-08-13] MEDS: Enoxaparin(*) 100 MG/ML SYR SUBCUT SCH ×2 (12:30→21:30)
[2019-08-13] MEDS: Albuterol HFA INHALER* 8 gm MDI INH PRN ×2 (15:59→23:00)
--- NOTE | 2019-08-13 16:08 | PN ---
Progress Note Date of Service: 08/13/19 Note: MADDIE SHIPMAN was visited. Therapy notes read and reviewed. Complains of dry cough at night-did not try Benadryl last night Current Medications: Active Medications Generic Name Dose Route Start Last Admin Trade Name Freq PRN Reason Stop Dose Admin Acetaminophen 650 mg 08/05/19 12:32 08/12/19 09:03 Tylenol Tab* PO 650 mg Q4H PRN Administration FEVER > 101 or mild pain Al Hydrox/Mg Hydrox/Simethicone 30 ml 08/05/19 12:18 Maalox Plus* PO Q6H PRN INDIGESTION Albuterol 2 puff 08/05/19 12:32 08/13/19 15:59 Ventolin Hfa Inhaler* INH 2 puff Q6H PRN Administration SOB/WHEEZING Bisacodyl 10 mg 08/05/19 12:18 Dulcolax Supp* [place] DAILY PRN CONSTIPATION Bupropion HCl 300 mg 08/11/19 09:00 08/13/19 07:29 Wellbutrin Xl * PO 300 mg DAILY AZALEA Administration Cyclobenzaprine HCl 10 mg 08/05/19 12:30 08/13/19 07:27 Flexeril Tab* PO 10 mg TID PRN Administration back spasms Diphenhydramine HCl 25 mg 08/12/19 12:04 Benadryl Po* PO BEDTIME PRN Allergy Symptoms Docusate Sodium 100 mg 08/05/19 21:00 08/13/19 07:27 Colace Cap* PO 100 mg BID AZALEA Administration Enoxaparin Sodium 100 mg 08/05/19 22:00 08/13/19 12:30 Lovenox(*) SUBCUT 100 mg Q12HR@1100,2200 AZALEA Administration Gabapentin 300 mg 08/05/19 21:00 08/13/19 15:20 Neurontin Cap(*) PO 300 mg TID AZALEA Administration Guaifenesin 5 ml 08/08/19 20:32 08/12/19 21:02 Robitussin* PO 5 ml Q6H PRN Administration COUGH Lactulose 30 ml 08/05/19 12:18 08/06/19 17:13 Lactulose* PO 30 ml Q6H PRN Administration CONSTIPATION Magnesium Hydroxide 30 ml 08/05/19 12:18 Milk Of Magnesia Liq* PO Q6H PRN CONSTIPATION Oxycodone HCl 10 mg 08/05/19 12:30 08/13/19 12:03 Roxycodone Tab* PO 10 mg Q4H PRN Administration PAIN - SEVERE Oxycodone HCl 5 mg 08/05/19 12:31 Roxycodone Tab* PO Q4H PRN PAIN - MODERATE Pantoprazole Sodium 40 mg 08/06/19 09:00 08/13/19 07:27 Protonix Tab* PO 40 mg DAILY AZALEA Administration Polyethylene Glycol/Electrolytes 17 gm 08/05/19 21:00 08/13/19 07:27 Miralax* PO 17 gm 0800,2100 AZALEA Administration Senna 2 tab 08/05/19 21:00 08/12/19 21:03 Senokot 8.6 Mg Tab* PO 2 tab BEDTIME AZALEA Administration Tiotropium [place]/Olodaterol 2 puff 08/06/19 09:00 08/13/19 07:28 Stiolto Respimat Inh [place] (60 Puff) INH 2 puff DAILY AZALEA Administration Vital Signs: Vital Signs Temp Pulse Resp BP Pulse Ox 98.4 F 101 14 100/57 93 08/13/19 04:51 08/13/19 04:51 08/13/19 15:20 08/13/19 04:51 08/13/19 04:51 Lab Results: Laboratory Results - last 24 hr 08/13/19 08/13/19 04:44 04:44 WBC 8.3 RBC 3.45 L Hgb 10.2 L Hct 31 L MCV 90 MCH 30 MCHC 33 RDW 14 Plt Count 482 H D MPV 6.4 L Neut % (Auto) 65.5 Lymph % (Auto) 24.6 [place] % (Auto) 5.8 Eos % (Auto) 2.9 Baso % (Auto) 1.2 Absolute Neuts (auto) 5.4 Absolute Lymphs (auto) 2.0 Absolute Monos (auto) 0.5 Absolute Eos (auto) 0.2 Absolute Basos (auto) 0.1 Absolute Nucleated RBC 0.0 Nucleated RBC % 0.1 Sodium 138 Potassium 4.2 Chloride 106 Carbon Dioxide 28 Anion Gap 4 BUN 12 Creatinine 0.62 Est GFR ( Amer) 122.3 Est GFR (Non-Af Amer) 101.1 BUN/Creatinine Ratio 19.4 Glucose 109 H Calcium 8.8 Total Bilirubin 0.20 AST 21 ALT 44 Alkaline Phosphatase 75 Total Protein 5.5 L Albumin 3.2 Globulin 2.3 Albumin/Globulin Ratio 1.4 Exam: HEENT: EOMI LUNGS: Scattered rhonchi HEART: Regular rhythm ABDOMEN: Soft +BS EXTREMITIES: Normal tone BACK: Wound C/D/I NEUROLOGIC: A&O. Sensation Intact. Strength close to 5/5 in legs Assessment/Plan: 1. 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 Dressing change 2. Pulmonary Embolus: Lovenox. Will switch to Eliquis 5 BID tomorrow 3. Pneumonia: Augmentin finished 4. Depression: Wellbutrin 5. Hypertension: BP low after PE. Holding Lisinopril 6: Advanced Directives: Full Code 08/13/19 16:08
[2019-08-13] MEDS: Senna TAB 8.6 mg* TAB PO SCH (21:29)
[2019-08-13] MEDS: guaiFENesin 100 mg/5 ml LIQ unit dose cup PO PRN (21:30)
[2019-08-14] MEDS: oxyCODONE TAB* 5 MG TAB PO PRN ×5 (01:40→21:19)
[2019-08-14] MEDS: Gabapentin CAP(*) 300 MG PO SCH ×3 (08:01→19:50)
[2019-08-14] MEDS: BuPROPion XL* 150 MG TAB.XL PO SCH (08:01)
[2019-08-14] MEDS: Apixaban* 5 MG TAB PO SCH ×2 (08:01→19:49)
[2019-08-14] MEDS: Polyethylene Glycol 3350* 17 GM PACKET PO SCH ×2 (08:01→19:48)
[2019-08-14] MEDS: Docusate CAP* 100 MG PO SCH ×2 (08:01→19:49)
[2019-08-14] MEDS: Pantoprazole TAB * 40 MG TAB PO SCH (08:02)
[2019-08-14] MEDS: Albuterol HFA INHALER* 8 gm MDI INH PRN (08:05)
[2019-08-14] MEDS: Cyclobenzaprine TAB* 10 MG PO PRN ×2 (08:09→19:50)
[2019-08-14] MEDS: Acetaminophen TAB* 325 MG PO PRN (08:09)
[2019-08-14] MEDS: Tiotropium Brom/Olodaterol MDI INH SCH (11:49)
--- NOTE | 2019-08-14 12:59 | PMRUTEAM ---
PMRU: Team Meeting Current Status: Physical Therapy: Current Status Current Rolling Status Independent Current Supine <-> Sit Status Setup or Clean-up Assist Current Sit <-> Stand Status Supervision/Touching Current Bed <-> Chair Status Supervision/Touching Transfer/Bed Mobility Rolling Walker Recommended Devices Current Picking Up Object Setup or Clean-up Assist Status Current Car Transfer Status Setup or Clean-up Assist Current Ambulation Assistance Supervision/Touching Status Ambulation Assistive Device Rolling Walker Ambulation Conditions Two or More Turns,Uneven Surfaces Current Ambulation Distance 300 Current Stair Climbing Status Setup or Clean-up Assist Stair Climbing Assistive Left Railing Devices Number of Stairs Climbed 4 Current Curb Assistance Status Supervision/Touching Curb Assistive Devices Rolling Walker Objective Comments Pt demonstrates improved functional endurance, completing several activities without rest breaks. Pt continues to report pain throughout session, but much improved from initial assessment. Occupational Therapy: Current Status Current Lower Body Dressing Independent Status Current Toileting Status Dependent Current Toilet Transfer Status Supervision/Touching Nursing: Current Status Skin Deviations [Midline Other Abdomen] Skin Deviations [Left Arm] Bruise Skin Deviations [Left Hand] Previous Access Point Skin Deviations [Right Thigh] Rash Skin Deviations [Midline Back] Incision Skin Deviation Description [ redness Left abdomenal fold] Skin Deviation Description [ redness Midline Abdomen] Skin Deviation Description [ inside left elbow Left Arm] Skin Deviation Description [ dressing removed Left Hand] Skin Deviation Description [ pt reports irritation likely d/t tape during Right Thigh] surgery Skin Deviation Description [ stitches Midline Back] Bladder Current Status continent - needs assistance with wiping Bowel Current Status continent - needs assistance with wiping Nutrition Current Status eats 75% of some meals Medication Current Status reinforcement with medications Rec Therapy: Current Status Summary of Assessment and Recreation Therapy assessment completed and pt. is Clinical Impression aware of services. Pt. is open to leisure visits and pet therapy while on the unit. Pt. participated in recreation group 08/13/19. Treatment Goals Pt. will engage in leisure activities while on the unit. Treatment Plan Provide recreation therapy services and encourage involvement. Nutrition: Current Status Monitoring Pt eating fairly well; she states that her appetite is "fine, no problems". Denies any GI concerns or wt loss. Given a few alternate options to the regular menu for some variety; she stated that she likes the grilled cheese option and may order that. Skin is intact (per chart). BMs daily . No nutritional concerns at this time. Will follow-up weekly or sooner if requested. Goals: Physical Therapy: Goals Goals to Be Accomplished in ( 1-6 Days) Goal: Rolling Assistance Independent Goal Supine <-> Sit Status Independent Goal Sit <-> Stand Status Independent Goal Bed <-> Chair Status Independent Transfer/Bed Mobility Rolling Walker,Pediatric Walker Recommended Devices Goal: Picking Up Object Independent Goal: Car Transfer Status Setup or Clean-up Assist Goal: Ambulation Assistance Independent Ambulation Assistive Devices Rolling Walker Ambulation Distance (ft) 150 Goal: Wheelchair Propulsion Not Applicable Ability Goal: Stairs Assistance Setup or Clean-up Assist Stairs Recommended Devices One Rail Number of Stairs 4 Goal: Curb Assistance Independent Goal: Home Exercise Program Independent Assistance Occupational Therapy: Goals Goals to be Completed in (Days 7-10 ) Nutrition: Goals Intervention Goals 1. adequate intake to support hydration and lean body mass without add'l wt gain 2. achieve and maintain serum electrolytes WNL 3. regulation of bowel pattern; no c/o constipation (or diarrhea) Nursing: Goals Bladder Goal continent - ability to wipe independently Bowel Goal continent - needs assistance with wiping Nutrition Goal eats 100% of all meals Medication Goal independent with medications Care Plan: Care Plan ADL's - Improve/Maintain Start: 08/05/19 19:48 Freq: DAILY@0700,1900 Status: Active Target: 08/06/19 Protocol: Activity Type Activity Date Activity User E-Sign Co-Sign Detail Recorded Client Recorded Date Recorded By Document 08/13/19 16:03 [id number] 08/13/19 16:03 [id number] 08/13/19 16:03 PMRU Outcome: ADL's/ADL Transfers Orders/Interventions Occupational Therapy Evaluation & Treatment Communication Tool in Patient Room Device Yes Address Deficits Secondary To: fusion Patient to receive OT 5x/wk for 60-120 Therex min/day Self Care Management Group Therapy UE/LE ADL's with Assist Yes: Sheila ADL Transfers with Assist Yes: Sheila Toileting: Transfers,Clothing Management Yes: Sheila ,Hygeine w/Assist Light Kitchen/Laundry w/Assist No Other Outcome/Goals Pt participated well in treatment session, tolerated increased resistance with UE therex, independent with use of AE for LE dressing , plan for shower next date. Progression Toward Outcome/Goals Goal Initiation Discharge Planning - Improve/Maintain Start: 08/05/19 19:48 Freq: DAILY@0700,1900 Status: Active Target: 08/17/19 Protocol: Activity Type Activity Date Activity User E-Sign Co-Sign Detail Recorded Client Recorded Date Recorded By Document 08/14/19 07:00 [id number] 08/14/19 07:54 [id number] 08/14/19 07:00 PMRU Outcome: Discharge Planning Update Patient Family No Current Discharge Planning Outcome/Goals Demonstrates Understanding of Discharge Plan Progression Toward Outcome/Goals Progressing Education-Improve/Maintain Start: 08/05/19 19:48 Freq: DAILY@0700,1900 Status: Active Target: 08/17/19 Protocol: Activity Type Activity Date Activity User E-Sign Co-Sign Detail Recorded Client Recorded Date Recorded By Document 08/14/19 07:00 [id number] 08/14/19 07:54 [id number] 08/14/19 07:00 PMRU Outcome: Education Current Education Outcome/Goals Demonstrate/ Verbalize Understanding of Written Discharge Instructions Demonstrates Skills Encourage Questions Progression Toward Outcome/Goals Progressing /GI-Improve/Maintain Start: 08/05/19 19:48 Freq: DAILY@0700,1900 Status: Active Target: 08/16/19 Protocol: Activity Type Activity Date Activity User E-Sign Co-Sign Detail Recorded Client Recorded Date Recorded By Document 08/14/19 07:00 [id number] 08/14/19 07:54 [id number] 08/14/19 07:00 PMRU Outcome: Genitourinary/ Gastrointestinal Current Gastrointestinal Outcome/Goals Maintain/ Achieve Bowel Regularity in Accordance with Pt's Baseline Remain Free of Emesis Prevent Constipation Laxatives as Ordered Progression Toward Outcome/Goals Progressing Current Genitourinary Outcome/Goals Maintain/ Achieve Urinary Continence Maintain/ Achieve Adequate Urinary Output Progression Toward Outcome/Goals Progressing Outcome/Goals Met Comment pt up to BR Mobility- Improve/Maintain Start: 08/05/19 19:48 Freq: DAILY@0700,1900 Status: Active Target: 08/14/19 Protocol: Activity Type Activity Date Activity User E-Sign Co-Sign Detail Recorded Client Recorded Date Recorded By Document 08/07/19 09:28 [id number] 08/07/19 09:32 [id number] 08/07/19 09:28 PMRU Outcome: Mobility Physical Therapy Evaluation and Yes Treatment Activity OOB with Assistance Yes WBAT Yes NWB No TTWB No Device Yes Assistance Yes Patient to be seen 5x/wk for 60-120 min/ Therex day for: Mobility Training Gait Training Balance Current Mobility Outcome/Goals Improve Mobility Status Progression Toward Outcome/Goals Goal Initiation Bed Mobility Yes: I Transfers Yes: I with RW Gait x ft Yes: 150' I with RW W/C Mobility x ft No Up/Down Stairs Yes: 4 with 2 rail, I With HEP Yes: I Neurological- Improve/Maintain Start: 08/05/19 19:48 Freq: DAILY@0700,1900 Status: Active Target: 08/18/19 Protocol: Activity Type Activity Date Activity User E-Sign Co-Sign Detail Recorded Client Recorded Date Recorded By Document 08/14/19 07:00 [id number] 08/14/19 07:54 [id number] 08/14/19 07:00 PMRU Outcome: Neurological Weakness/Aphasia Weakness Current Neurological Outcome/Goals Improve Neurological Status Maintain/ Improve Strength/ROM Progression Toward Outcome/Goals Progressing Pain/Comfort- Improve/Maintain Start: 08/05/19 19:48 Freq: DAILY@0700,1900 Status: Complete Target: 08/18/19 Protocol: Activity Type Activity Date Activity User E-Sign Co-Sign Detail Recorded Client Recorded Date Recorded By Document 08/13/19 17:31 [id number] 08/13/19 17:32 [id number] 08/13/19 17:31 PMRU Outcome: Pain/Comfort Current Pain/Comfort Outcome/Goals Demonstrates Knowledge and Use of Available Comfort Measures Achieves Acceptable Comfort/Pain Level as Determined by Patient/Condit Maintain Comfort Level Allowing Patient to Fully Participate in Rehab Progression Toward Outcome/Goals Progressing Outcome/Goals Met Demonstrates Knowledge and Use of Available Comfort Measures Maintain Comfort Level Allowing Patient to Fully Participate in Rehab Rec Therapy- Improve/Maintain Start: 08/06/19 16:09 Freq: DAILY@0700,1900 Status: Active Target: 08/15/19 Protocol: Activity Type Activity Date Activity User E-Sign Co-Sign Detail Recorded Client Recorded Date Recorded By Document 08/14/19 11:24 [id number] 08/14/19 11:24 [id number] 08/14/19 11:24 PMRU Outcome: Recreation Therapy Current Rec Ther Outcome/Goals Meet with Patient Regularly for Support Encourage Leisure Involvement Progression Toward Outcome/Goals Progressing Lack of Progression Comment pt. joined recreation group yesterday Outcome/Goals Met Meet with Patient Regularly for Support Encourage Leisure Involvement Safety- Improve/Maintain Start: 08/05/19 14:20 Freq: DAILY@0700,1900 Status: Active Target: 08/19/19 Protocol: Activity Type Activity Date Activity User E-Sign Co-Sign Detail Recorded Client Recorded Date Recorded By Document 08/14/19 07:00 [id number] [email or web address] 08/14/19 07:54 [id number] 08/14/19 07:00 PMRU Outcome: Safety Current Safety Outcome/Goals Remain Free of Injury or Harm Cooperates with Safety Measures for Least Restrictive Environment Prevent Falls/ Injury Progression Toward Outcome/Goals Progressing - Interdisciplinary Staff Present Franchise Sales Director/Social Work Staff Present: Margaret Izquierdo Nursing Staff Present: Silvia Hill LPN OT Staff Present: Lilia Whitehead PT Staff Present: Maribel Barbosa Rec Therapy Staff Present: Carline Denny Medicine Note: Length of Stay: 1 day Anticipated Discharge Destination: Home Tentative Discharge Date: 08/15/19 Discharged to: Home
--- NOTE | 2019-08-14 18:05 | PN ---
Progress Note Date of Service: 08/14/19 Note: MADDIE SHIPMAN was visited. Therapy notes read and reviewed. She was discussed in interdisciplinary team rounds. She has no complaints. Moving well. For discharge in am. Has TLSO now. Current Medications: Active Medications Generic Name Dose Route Start Last Admin Trade Name Freq PRN Reason Stop Dose Admin Acetaminophen 650 mg 08/05/19 12:32 08/14/19 08:09 Tylenol Tab* PO 650 mg Q4H PRN Administration FEVER > 101 or mild pain Al Hydrox/Mg Hydrox/Simethicone 30 ml 08/05/19 12:18 Maalox Plus* PO Q6H PRN INDIGESTION Albuterol 2 puff 08/05/19 12:32 08/14/19 08:05 Ventolin Hfa Inhaler* INH 2 puff Q6H PRN Administration SOB/WHEEZING Apixaban 5 mg 08/14/19 09:00 08/14/19 08:01 Eliquis* PO 5 mg BID AZALEA Administration Bisacodyl 10 mg 08/05/19 12:18 Dulcolax Supp* MI DAILY PRN CONSTIPATION Bupropion HCl 300 mg 08/11/19 09:00 08/14/19 08:01 Wellbutrin Xl * PO 300 mg DAILY AZALEA Administration Cyclobenzaprine HCl 10 mg 08/05/19 12:30 08/14/19 08:09 Flexeril Tab* PO 10 mg TID PRN Administration back spasms Diphenhydramine HCl 25 mg 08/12/19 12:04 Benadryl Po* PO BEDTIME PRN Allergy Symptoms Docusate Sodium 100 mg 08/05/19 21:00 08/14/19 08:01 Colace Cap* PO 100 mg BID AZALEA Administration Gabapentin 300 mg 08/05/19 21:00 08/14/19 15:05 Neurontin Cap(*) PO 300 mg TID AZALEA Administration Guaifenesin 5 ml 08/08/19 20:32 08/13/19 21:30 Robitussin* PO 5 ml Q6H PRN Administration COUGH Lactulose 30 ml 08/05/19 12:18 08/06/19 17:13 Lactulose* PO 30 ml Q6H PRN Administration CONSTIPATION Magnesium Hydroxide 30 ml 08/05/19 12:18 Milk Of Magnesia Liq* PO Q6H PRN CONSTIPATION Oxycodone HCl 10 mg 08/05/19 12:30 08/14/19 15:08 Roxycodone Tab* PO 10 mg Q4H PRN Administration PAIN - SEVERE Oxycodone HCl 5 mg 08/05/19 12:31 Roxycodone Tab* PO Q4H PRN PAIN - MODERATE Pantoprazole Sodium 40 mg 08/06/19 09:00 08/14/19 08:02 Protonix Tab* PO 40 mg DAILY AZALEA Administration Polyethylene Glycol/Electrolytes 17 gm 08/05/19 21:00 08/14/19 08:01 Miralax* PO 17 gm 0800,2100 AZALEA Administration Senna 2 tab 08/05/19 21:00 08/13/19 21:29 Senokot 8.6 Mg Tab* PO 2 tab BEDTIME AZALEA Administration Tiotropium Star/Olodaterol 2 puff 08/06/19 09:00 08/14/19 11:49 Stiolto Respimat Inh [place] (60 Puff) INH Not Given DAILY AZALEA Vital Signs: Vital Signs Temp Pulse Resp BP Pulse Ox 97.9 F 104 18 107/60 98 08/14/19 16:44 08/14/19 16:44 08/14/19 17:19 08/14/19 16:44 08/14/19 16:44 Exam: HEENT: EOMI LUNGS: Scattered rhonchi HEART: Regular rhythm ABDOMEN: Soft +BS EXTREMITIES: Normal tone BACK: Wound C/D/I NEUROLOGIC: A&O. Sensation Intact. Strength close to 5/5 in legs Assessment/Plan: 1. 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 Dressing change 2. Pulmonary Embolus: Eliquis 5 BID 3. Depression: Wellbutrin 4. Hypertension: BP low after PE. Holding Lisinopril 5: Advanced Directives: Full Code 08/14/19 18:05
[2019-08-14] MEDS: Senna TAB 8.6 mg* TAB PO SCH (19:49)
[2019-08-14] MEDS: guaiFENesin 100 mg/5 ml LIQ unit dose cup PO PRN (21:21)
[2019-08-15] MEDS: oxyCODONE TAB* 5 MG TAB PO PRN ×3 (01:42→10:33)
[2019-08-15 05:20] VITALS: BP 127/72
[2019-08-15] MEDS: Tiotropium Brom/Olodaterol MDI INH SCH (07:42)
[2019-08-15] MEDS: guaiFENesin 100 mg/5 ml LIQ unit dose cup PO PRN (09:15)
[2019-08-15] MEDS: BuPROPion XL* 150 MG TAB.XL PO SCH (09:15)
[2019-08-15] MEDS: Apixaban* 5 MG TAB PO SCH (09:15)
[2019-08-15] MEDS: Albuterol HFA INHALER* 8 gm MDI INH PRN (09:15)
[2019-08-15] MEDS: Polyethylene Glycol 3350* 17 GM PACKET PO SCH (09:16)
[2019-08-15] MEDS: Docusate CAP* 100 MG PO SCH (09:17)
[2019-08-15] MEDS: Cyclobenzaprine TAB* 10 MG PO PRN (09:17)
[2019-08-15] MEDS: Acetaminophen TAB* 325 MG PO PRN (09:18)
[2019-08-15] MEDS: Gabapentin CAP(*) 300 MG PO SCH (09:21)
[2019-08-15] MEDS: Pantoprazole TAB * 40 MG TAB PO SCH (11:40)
--- NOTE | 2019-08-17 02:03 | DS ---
CC: [facility] * DISCHARGE SUMMARY: DATE OF ADMISSION: 08/05/19 DATE OF DISCHARGE: 08/15/19 DISCHARGE DIAGNOSES: 1. T10 to S1 and pelvis fusion with left L3 to S1 TLIF. 2. Osteoarthritis. 3. Hypertension. 4. Pulmonary embolus. 5. Pneumonia. HISTORY OF PRESENT ILLNESS AND HOSPITAL COURSE: For complete history of the events leading up to her rehab stay, please see the history and physical dictated by Dr. Mayte Hunter on 08/05/19. While on the rehab unit, the patient was maintained on Lovenox full strength anticoagulation. On the day, prior to discharge, her Lovenox was stopped and she was put on Eliquis 5 mg twice daily. The patient also finished up treatment for pneumonia with oral antibiotics while on the rehab unit. She finished a 5 day course of Augmentin on top of her IV antibiotics and Augmentin that she had had on the acute service. The patient's blood pressure medications were held as she was a little hypotensive after her pulmonary embolus. The patient's wound was healing well. She was otherwise medically stable. She was seen by Physical Therapy and Occupational Therapy and made good gains with both disciplines. With physical therapy at the time of admission, the patient required mod assist for bed mobility, min assist to transfer. She was able to ambulate with minimal amount of assistance a 150 feet. She could do 4 steps with minimal amount of assistance. With occupational therapy at the time of admission, the patient required min assist for upper body dressing, max assist for lower body dressing, max assist for toileting, contact guard to do a toilet transfer. By the time of discharge, the patient was independent in transfers, independent ambulating, independent going up and down stairs with 1 or 2 rails. She did need some assistance for walker management going up stairs. She was independent in dressing, independent in toileting and toilet transfers. She was discharged home with her on 08/15/19. DISCHARGE DIET: Regular. DISCHARGE MEDICATIONS: 1. Eliquis 5 mg orally twice daily. 2. Wellbutrin XL 300 mg orally daily. 3. Flexeril 10 mg three times daily as needed. 4. Gabapentin 300 mg three times daily. 5. Stiolto Respimat inhaler 2 puffs daily. 6. MiraLAX 17 g orally twice daily. 7. Oxycodone 10 mg every 4 hours as needed. 8. Omeprazole 20 mg daily. SERVICES AFTER DISCHARGE: The patient will have outpatient physical therapy. FOLLOWUP: The patient will follow up with Dr. Pompa as well as with her primary care team at the [facility]. DISPOSITION: The patient was discharged home. CONDITION AT DISCHARGE: Stable. TIME SPENT: Time for this discharge was approximately 50 minutes, greater than half of that was spent with the patient and her explaining post- rehabilitation therapies, services, and medications. [id number]/CPS #: [id number] MTDD
--- NOTE | 2019-08-28 12:25 | HP ---
HISTORY AND PHYSICAL: ADDENDUM: ALLERGIES: She has no known drug allergies. REVIEW OF SYSTEMS: Please see history of present illness and past medical history. A 13-system review was completed. No other significant findings. [id number]/CPS #: [id number] RANULFO
== END 2019-08-15 11:41 | disposition home or self-care (01) | DRG 949 ==
LOC: PMRU 08-05 14:19
PROVIDERS: ADMIT Physical Medicine & Rehabilitation; ATTEND Physical Medicine & Rehabilitation
PROC: F07Z5ZZ Bed Mobility Treatment (ICD-10-PCS; principal; 2019-08-05)
PROC: F07Z9ZZ Gait Training/Functional Ambulation Treatment (ICD-10-PCS; 2019-08-05)
PROC: F07Z8ZZ Transfer Training Treatment (ICD-10-PCS; 2019-08-05)
PROC: F08Z0ZZ Bathing/Showering Techniques Treatment (ICD-10-PCS; 2019-08-05)
PROC: F08Z1ZZ Dressing Techniques Treatment (ICD-10-PCS; 2019-08-05)
PROC: F08Z3ZZ Feeding/Eating Treatment (ICD-10-PCS; 2019-08-05)
DX: Z48.89 Encounter for other specified surgical aftercare (principal); I26.93 Single subsegmental thrombotic pulmonary embolism without acute cor pulmonale; D62 Acute posthemorrhagic anemia; J95.89 Other postprocedural complications and disorders of respiratory system, not elsewhere classified; M19.90 Unspecified osteoarthritis, unspecified site; J45.909 Unspecified asthma, uncomplicated; I10 Essential (primary) hypertension; F32.9 Major depressive disorder, single episode, unspecified; K59.03 Drug induced constipation; K21.9 Gastro-esophageal reflux disease without esophagitis; Z79.1 Long term (current) use of non-steroidal anti-inflammatories (NSAID); Z79.899 Other long term (current) drug therapy; Z82.49 Family history of ischemic heart disease and other diseases of the circulatory system; Z87.891 Personal history of nicotine dependence
CPT/HCPCS: 36415; 80053; 85025; 94640; A9270-GY; J1650; J3535